=== PATIENT | female | born 1935 | race Caucasian/White ===

== ENCOUNTER → 2017-02-03 | Outpatient (CLI) | payer OTHER, BC ==
[~2017-02-03] MED LIST: ASCO1CAP3 PO; ASPEC325 PO; CALC-20 PO; CHOL1000 PO; HYDR-5688 PO; LEVO88TA3 PO; LSN20 PO; MELO7.5T5 PO; MULT-506 PO; OXYSR10 PO; PROB1TAB16 PO; PSYL0.524 PO; RANI300T PO; SNK PO
--- NOTE | 2017-02-03 14:42 | MAMMOGRAPHY REPORT ---
BILATERAL DIGITAL SCREENING MAMMOGRAM WITH CAD: 02/03/2017 CLINICAL HISTORY: Routine screening. Patient has no complaints. TECHNIQUE: Bilateral CC and MLO views were obtained. Current study was also evaluated with a Compute r Aided Detection (CAD) system. COMPARISON: Comparison is made to exams dated: 02/01/2016 mammogram, 01/02/2015 mammogram, 11/22/2013 ma mmogram, 11/18/2012 mammogram, 11/17/2011 mammogram, and 10/16/2010 mammogram - [facility]ter. BREAST COMPOSITION: There are scattered areas of fibroglandular density in both breasts. FINDINGS: There are scattered bilateral benign-appearing calcifications. The parenchymal pattern griselda ears similar to prior exams. No new suspicious mass, architectural distortion or cluster of microcal cifications is seen. IMPRESSION: ACR BI-RADS CATEGORY 1: NEGATIVE There is no mammographic evidence of malignancy. A 1 year screening mammogram is recommended. The pa tient will receive written notification of the results. Approximately 10% of breast cancers are not detected with mammography. A negative mammographic report should not delay biopsy if a clinically suggestive mass is present. Kaylah Langford M.D. ay/:02/03/2017 10:02:55 Covered Button Maker: Maribell JULIAN(R)(M), [facility] letter sent: Normal 1/2 BI-RADS Code: ACR BI-RADS Category 1: Negative
== END | disposition home or self-care (01) ==
LOC: C.MAMM 09:29
PROVIDERS: ATTEND Family Medicine
DX: Z12.31 Encounter for screening mammogram for malignant neoplasm of breast (principal)

== ENCOUNTER → 2017-11-17 | Outpatient (CLI) | payer OTHER, BC | END | disposition home or self-care (01) | LOC: C.MAMM 09:48 | PROVIDERS: ATTEND Student in an Organized Health Care Education/Training Program | DX: M81.0 Age-related osteoporosis without current pathological fracture (principal); M85.88 Other specified disorders of bone density and structure, other site ==

== ENCOUNTER 2021-04-01 10:05 | Observation (INO) ==
[2021-04-01 10:35] LABS: Basophils # (auto) 0.02 K/uL (0-0.2); Basophils % (auto) 0.3 %; Eosinophils % (auto) 4.4 %; Hematocrit (blood only) 42.2 % (37-47); Hemoglobin 14.1 g/dL (12.0-16.0); Immature Granulocytes # (auto) 0.01 K/uL (0.00-0.02); Immature Granulocytes % (auto) 0.1 %; Lymphocytes # (auto) 2.17 K/uL (1.2-3.4); Lymphocytes % (auto) 31.9 %; Mean Corpuscular Hemoglobin 31.3 pg (25-34); Mean Corpuscular Hgb Conc 33.4 g/dL (32-36); Mean Corpuscular Volume 93.8 fL (80-100); Mean Platelet Volume 12.1 fL (7.4-10.4); Monocytes # (auto) 0.63 K/uL (0.11-0.59); Monocytes % (auto) 9.3 %; Neutrophils # (auto) 3.67 K/uL (1.4-6.5); Platelet Count 177 K/uL (130-400); RDW Standard Deviation 44.7 fL (36.4-46.3)
--- NOTE | 2021-04-01 10:44 | XRay Report ---
XR chest 1V portable HISTORY: 85 years-old Female Chest Pain acute atypical chest pain with left arm pain COMPARISON: Chest radiograph 10/28/2018 TECHNIQUE: Portable AP view of the chest FINDINGS: Cardiac silhouette is mildly enlarged. No pneumothorax, pleural effusion, airspace consolidation or o vert pulmonary edema. Degenerative changes of the shoulders and spine. IMPRESSION: No acute process. ACT 112: Negative or not required by law. The above report was generated using voice recognition software. It may contain grammatical, syntax o r spelling errors. Electronically signed by: Filemon Lopez M.D. 04/01/2021 10:43 AM
[2021-04-01 10:51] LABS: Appearance Urine Clear (Clear); Bilirubin Urine Negative (Negative); Blood Urine Negative (Negative); Color Urine Yellow; Glucose Urine UA Negative (Negative); Ketones Urine Negative (Negative); Leukocyte Esterase Urine Negative (Negative); Nitrite Urine Positive (Negative); Protein Urine Negative (Negative); Urobilinogen Urine Negative (Negative)
[2021-04-01 11:00] LABS: Partial Thromboplastin Ratio 0.9; Partial Thromboplastin Time 24.2 Seconds (21.0-31.0); Prothrombin Time 9.9 Seconds (9.0-12.0)
[2021-04-01 11:00] LABS: Bacteria Urine 2+ (Negative); Epithelial Cell Urine 0-5 /lpf (0-5); RBC Urine 0-4 /hpf (0-4); WBC Urine 0-5 /hpf (0-5)
--- NOTE | 2021-04-01 11:13 | Emergency Department Note ---
History of Present Illness General Chief complaint: Cardiac Assessment Stated complaint: SOB,PAIN IN LEFT ARM Time Seen by Provider: 04/01/21 10:49 Source: patient Mode of arrival: ambulatory Limitations: no limitations History of Present Illness Maximum Pain Intensity: 0 This patient is a 85-year-old female who comes in after having episode of left arm pain that radiates to her axilla. She was in her usual state of health she went out to walk which she typically does and she started having this discomfort which he describes as a gnawing pain. It may have also radiated to her shoulder. No chest pain she felt more winded than usual. She said she felt better if she sat down nothing seemed to make it worse except for exertion. No pain with movement of the arm itself. She was not not nauseated. She felt mildly sweaty although not out of ordinary for her exercising. She says she feels fine at present. She has no pain or discomfort. She says she has had issues like this before but it has always gone away and her doctor told her to keep an eye on it. She had a stress test years ago but none recently. She has had no fever chills she does a Covid vaccine. No abdominal pain. No blood or melena in her stool. Home Medications Medication Instructions Recorded Confirmed Type acetaminophen 500 mg tablet 1,000 mg PO Q6H PRN 10/28/18 04/01/21 History (Tylenol Extra Strength) ascorbic acid (vitamin C) 500 mg 500 mg PO BID 10/28/18 04/01/21 History tablet (Vitamin C) aspirin 81 mg tablet,delayed 81 mg PO HS 10/28/18 04/01/21 History release cholecalciferol (vitamin D3) 25 1,000 unit PO QAM 10/28/18 04/01/21 History mcg (1,000 unit) tablet (Vitamin D3) lactobacillus combination no.4 3 3,000 mmu cells PO HS 10/28/18 03/07/20 History billion cell capsule (Probiotic) lisinopril 20 mg tablet 20 mg PO QAM 10/28/18 04/01/21 History multivitamin 1 tab PO QAM 10/28/18 04/01/21 History psyllium husk 0.52 gram capsule 0.52 g PO QAM PRN 10/28/18 04/01/21 History (Metamucil) famotidine 20 mg tablet 40 mg PO BID 12/17/19 04/01/21 History levothyroxine 75 mcg tablet 75 mcg PO QAM 12/17/19 04/01/21 History meloxicam 15 mg tablet 15 mg PO QAM 12/20/19 04/01/21 History calcium carbonate 600 mg (1,500 1 tab PO DAILY 04/01/21 04/01/21 History mg)-vitamin D3 200 unit tablet (Calcium 600 + D(3)) Allergies Allergy/AdvReac Type Severity Reaction Status Date / Time Penicillins Allergy Unknown Unknown Verified 04/01/21 11:13 doxycycline AdvReac Severe Gastrointestinal Verified 04/01/21 11:13 Upset Sulfa (Sulfonamide AdvReac Mild Nausea Verified 04/01/21 11:13 Antibiotics) Past Med/Surg History Medical History (Updated 04/01/21 @ 17:28 by Jim Pavon MD) Diabetes mellitus, type 2 Diet controlled GERD (gastroesophageal reflux disease) Hearing deficit BL LOVE History of colon polyps Hypertension Hypothyroidism Osteoarthritis Right knee DJD Surgical History History of ankle surgery Lt History of appendectomy History of carpal tunnel release of both wrists History of cataract surgery History of colonoscopy History of esophagogastroduodenoscopy (EGD) History of hammertoe correction History of partial hysterectomy History of right knee joint replacement History of toe surgery History of tonsillectomy S/P hysterectomy Family History Sister Family history of esophageal cancer Social History Smoking Status: Never smoker Second Hand Exposure: Yes ( was a smoker); Hx Alcohol Use: Yes Alcohol type: wine Hx Substance Use: No Preferred Language: Danish Communication Ability: Effective Musician Instrumental Required: No Beliefs That Will Affect Care: None marital status: / Current Living Situation: Spouse current occupational status: retired Other Information That Helps Us Care for You: No Feels Safe at Home: Yes Safety Concerns: Feels Safe At This Time Assistive Devices: Glasses Review of Systems A total of 10 systems reviewed and were otherwise negative Physical Exam Vital Signs Vital Signs - 24 hr 04/01/21 10:07 04/01/21 10:40 04/01/21 11:16 Temperature 37.0 C Temperature Source Temporal Artery Scan Pulse Rate 70 63 Pulse Rate [Apical] 72 Pulse Rate from SpO2 Sensor 64 Pulse Rhythm Pulse Rhythm [Apical] Regular Pulse Strength [Apical] Normal Respiratory Rate 18 16 16 Respiratory Effort / Characteristics Non-Labored Spontaneous Respiratory Depth Normal Blood Pressure 174/78 H 140/72 Blood Pressure [Right Arm] 153/69 H Blood Pressure Mean 110 94 Blood Pressure Mean [Right Arm] 97 Blood Pressure Position [Right Arm] Standing Pulse Oximetry 97 99 97 Oxygen Delivery Method Room Air Sepsis Recent Fever Within 48 Hours No Sepsis New/Unexplained Change in Mental Status No Sepsis Action Taken by Nursing No Action Required 04/01/21 11:34 04/01/21 13:57 Temperature Temperature Source Pulse Rate 60 Pulse Rate [Apical] 68 Pulse Rate from SpO2 Sensor Pulse Rhythm Regular Pulse Rhythm [Apical] Pulse Strength [Apical] Respiratory Rate 20 20 Respiratory Effort / Characteristics Respiratory Depth Blood Pressure Blood Pressure [Right Arm] 164/72 H Blood Pressure Mean Blood Pressure Mean [Right Arm] 102 Blood Pressure Position [Right Arm] Pulse Oximetry 98 96 Oxygen Delivery Method Room Air Room Air Sepsis Recent Fever Within 48 Hours Sepsis New/Unexplained Change in Mental Status Sepsis Action Taken by Nursing General: Well developed well nourished older female who appears younger than stated age and in no acute distress, breathing comfortably on room air. Normal speech HEENT: Normal cephalic atraumatic. Pupils are equal round and reactive to ligh t. Extraocular movements are intact. Oropharynx is pink with moist mucous membranes. No swelling of the mouth lips or tongue. Neck: Supple with a midline trachea. No meningeal signs or stiffness, no JVD or bruits. No Stridor. Chest: Clear to auscultation bilaterally. No wheezes or rhonchi. No increased work of breathing. Heart: Regular rate and rhythm without murmurs or gallops. Abdomen: Soft nontender, nondistended without rebound guarding or rigidity. Extremities: No cyanosis clubbing or edema. No calf tenderness or assymetry. Left upper extremity is pink and well-perfused appearing with normal pulses. Is not swollen is not red is not tender. She is not reproducibly tender with movement. Spine/Back. Non tender to palpation. No CVA tenderness Skin: Good turgor without rashes. Neurologic exam: Cranial nerves two through 12 are intact. Motor and sensation are intact and symmetrical throughout. Course Administered Medications Discontinued Medications Aspirin (Aspirin 81 Mg Chew) 324 mg PO NOW STA Stop: 04/01/21 12:37 Last Admin: 04/01/21 12:54 Dose: 324 mg Documented by: [id number] Medical Decision Making Differential Diagnosis Acute coronary syndrome, arrhythmia, electrolyte or metabolic abnormality, musculoskeletal, anxiety, CHF, PE, aortic pathology Medical Records Attestation: I reviewed the patient's medical records. Home Medications Current Medication List: was personally reviewed by me Laboratory Data Attestation: I reviewed the patient's lab results. Result diagrams: 04/01/21 10:24 04/01/21 10:24 Lab Results 04/01/21 04/01/21 04/01/21 Range/Units 10:24 10:24 10:24 WBC 6.80 (4.8-10.8) K/uL RBC 4.50 (4.2-5.4) M/uL Hgb 14.1 (12.0-16.0) g/dL Hct 42.2 (37-47) % MCV 93.8 (80-100) fL MCH 31.3 (25-34) pg MCHC 33.4 (32-36) g/dL RDW Std Deviation 44.7 (36.4-46.3) fL RDW Coeff of Jenna 13.0 (11.5-14.5) % Plt Count 177 (130-400) K/uL MPV 12.1 H (7.4-10.4) fL Immature Gran % (Auto) 0.1 % Neut % (Auto) 54.0 % Lymph % (Auto) 31.9 % [place] % (Auto) 9.3 % Eos % (Auto) 4.4 % Baso % (Auto) 0.3 % Neut # (Auto) 3.67 (1.4-6.5) K/uL Lymph # (Auto) 2.17 (1.2-3.4) K/uL [place] # (Auto) 0.63 H (0.11-0.59) K/uL Eos # (Auto) 0.30 (0-0.5) K/uL Baso # (Auto) 0.02 (0-0.2) K/uL Immature Gran # (Auto) 0.01 (0.00-0.02) K/uL PT 9.9 (9.0-12.0) Seconds INR 1.0 (0.9-1.1) APTT 24.2 (21.0-31.0) Seconds PTT Ratio 0.9 Sodium 137 (136-145) mmol/L Potassium 4.6 (3.5-5.1) mmol/L Chloride 106 (98-107) mmol/L Carbon Dioxide 27 (21-32) mmol/L Anion Gap 4.0 (3-11) BUN 22 H (7-18) mg/dl Creatinine 1.00 (0.6-1.2) mg/dl Est Cr Clr Drug Dosing 40.9 ml/min Est GFR ( Amer) 60.3 ml/min Est GFR (Non-Af Amer) 52.1 ml/min BUN/Creatinine Ratio 22.5 H (10-20) Glucose 128 H (70-99) mg/dl Calcium 9.1 (8.5-10.1) mg/dl Total Bilirubin 0.4 (0.2-1) mg/dl AST 16 (15-37) U/L ALT 24 (12-78) U/L Alkaline Phosphatase 49 (45-117) U/L Troponin I < 0.015 (0-0.045) ng/ml Total Protein 6.8 (6.4-8.2) gm/dl Albumin 3.7 (3.4-5.0) gm/dl Globulin 3.1 (2.5-4.0) gm/dl Albumin/Globulin Ratio 1.2 (0.9-2) Urine Color Urine Appearance (Clear) Urine pH (4.5-7.5) Ur Specific [place] (1.000-1.030) Urine Protein (Negative) Urine Glucose (UA) (Negative) Urine Ketones (Negative) Urine Blood (Negative) Urine Nitrite (Negative) Urine Bilirubin (Negative) Urine Urobilinogen (Negative) Ur Leukocyte Esterase (Negative) Urine RBC (0-4) /hpf Urine WBC (0-5) /hpf Ur Epithelial Cells (0-5) /lpf Urine Bacteria (Negative) COVID-19 Eval Order SARS-CoV-2 (PCR) (Negative) 04/01/21 04/01/21 04/01/21 Range/Units 10:37 12:54 12:54 WBC (4.8-10.8) K/uL RBC (4.2-5.4) M/uL Hgb (12.0-16.0) g/dL Hct (37-47) % MCV (80-100) fL MCH (25-34) pg MCHC (32-36) g/dL RDW Std Deviation (36.4-46.3) fL RDW Coeff of Jenna (11.5-14.5) % Plt Count (130-400) K/uL MPV (7.4-10.4) fL Immature Gran % (Auto) % Neut % (Auto) % Lymph % (Auto) % [place] % (Auto) % Eos % (Auto) % Baso % (Auto) % Neut # (Auto) (1.4-6.5) K/uL Lymph # (Auto) (1.2-3.4) K/uL [place] # (Auto) (0.11-0.59) K/uL Eos # (Auto) (0-0.5) K/uL Baso # (Auto) (0-0.2) K/uL Immature Gran # (Auto) (0.00-0.02) K/uL PT (9.0-12.0) Seconds INR (0.9-1.1) APTT (21.0-31.0) Seconds PTT Ratio Sodium (136-145) mmol/L Potassium (3.5-5.1) mmol/L Chloride (98-107) mmol/L Carbon Dioxide (21-32) mmol/L Anion Gap (3-11) BUN (7-18) mg/dl Creatinine (0.6-1.2) mg/dl Est Cr Clr Drug Dosing ml/min Est GFR ( Amer) ml/min Est GFR (Non-Af Amer) ml/min BUN/Creatinine Ratio (10-20) Glucose (70-99) mg/dl Calcium (8.5-10.1) mg/dl Total Bilirubin (0.2-1) mg/dl AST (15-37) U/L ALT (12-78) U/L Alkaline Phosphatase (45-117) U/L Troponin I (0-0.045) ng/ml Total Protein (6.4-8.2) gm/dl Albumin (3.4-5.0) gm/dl Globulin (2.5-4.0) gm/dl Albumin/Globulin Ratio (0.9-2) Urine Color Yellow Urine Appearance Clear (Clear) Urine pH 7.0 (4.5-7.5) Ur Specific [place] 1.010 (1.000-1.030) Urine Protein Negative (Negative) Urine Glucose (UA) Negative (Negative) Urine Ketones Negative (Negative) Urine Blood Negative (Negative) Urine Nitrite Positive A (Negative) Urine Bilirubin Negative (Negative) Urine Urobilinogen Negative (Negative) Ur Leukocyte Esterase Negative (Negative) Urine RBC 0-4 (0-4) /hpf Urine WBC 0-5 (0-5) /hpf Ur Epithelial Cells 0-5 (0-5) /lpf Urine Bacteria 2+ H (Negative) COVID-19 Eval Order Covid19 at [facility] SARS-CoV-2 (PCR) NEGATIVE (Negative) Imaging Data Attestation: I personally reviewed and interpreted this imaging study as follows: My Impression: Chest x-rayno acute infiltrate, failure, pneumothorax Radiologist's Impression: Chest X-Ray 04/01/21 10:12 XR chest 1V portable HISTORY: 85 years-old Female Chest Pain acute atypical chest pain with left arm pain COMPARISON: Chest radiograph 10/28/2018 TECHNIQUE: Portable AP view of the chest FINDINGS: Cardiac silhouette is mildly enlarged. No pneumothorax, pleural effusion, airspace consolidation or overt pulmonary edema. Degenerative changes of the shoulders and spine. IMPRESSION: No acute process. ACT 112: Negative or not required by law. The above report was generated using voice recognition software. It may contain grammatical, syntax or spelling errors. Electronically signed by: Filemon Lopez M.D. 04/01/2021 10:43 AM ECG Data Attestation: I personally reviewed and interpreted this ECG as follows: Indication: + chest pain Rate (beats per minute): 72 Rhythm: + normal sinus ECG Intervals/blocks: + Normal QRS, + Normal QT and + Normal PA ECG [place]: + Normal ECG ST segments: + Normal ST segments ECG Findings: no PACs or no PVCs Comparison ECG Date: from (10/28/18) Change: no significant change Additional Comments: EKG #2: Sinus bradycardia rate of 59. No acute ischemic changes or ectopy. No change when compared EKG #1 MDM Narrative This patient comes in as described above. She was placed on a teletypesetter monitor and C1. She had episode of left arm pain into her axilla. She feels better at present it seemed to be exacerbated with exertion. She has no neurologic deficits. She does tell me that her mother had a CABG early in her life at age 52. The patient does have borderline diabetes but no increased cholesterol she is not a smoker. Her initial EKG does not appear ischemic. Her troponin was also negative. A second EKG shows no ischemia. Chest x-ray does not suggest congestive heart failure pneumonia or pneumothorax. She has no significant lecture light or metabolic abnormalities. Covid testing was negative. Given her presentation of symptoms, its exertional component and her risk factors, I do think she needs to be admitted/observe for further cardiac work-up and rule out. I have consulted the [facility] hospitalist team for these measures. Continuous cardiac monitoring: Orders placed in EMR for continuous cardiac monitoring. Upon my interpretation, the patient was noted to be normal sinus rhythm with a rate of 60. Impression & Plan Chest pain, Arm pain, Lab test negative for COVID-19 virus, Family history of heart disease Discharge Plan Visit Data Chief Complaint: Cardiac Assessment Stated Complaint: SOB,PAIN IN LEFT ARM ED Provider: Jim Pavon Discharge Problem: Chest pain, Arm pain, Lab test negative for COVID-19 virus, Family history of heart disease Patient Disposition: Admitted As Inpatient Discharge Instructions Interventions: ED Discharge Assessment Last Done: 04/01/21 15:36 Discharge Problem: Chest pain Qualifiers: Chest pain type: unspecified Qualified Code(s): R07.9 - Chest pain, unspecified Arm pain Qualifiers: Laterality: left Qualified Code(s): M79.602 - Pain in left arm
[2021-04-01 11:14] LABS: Alanine Aminotransferase 24 U/L (12-78); Albumin Level 3.7 gm/dl (3.4-5.0); Aspartate Aminotransferase 16 U/L (15-37); BUN Creatinine Ratio 22.5 (10-20); Blood Urea Nitrogen 22 mg/dl (7-18); Calcium 9.1 mg/dl (8.5-10.1); Carbon Dioxide 27 mmol/L (21-32); Chloride 106 mmol/L (98-107); Creatinine Clr Calc Pharmacy 40.9 ml/min; Est GFR (African American) 60.3 ml/min; Est GFR (Non-African American) 52.1 ml/min; Glucose 128 mg/dl (70-99); Potassium 4.6 mmol/L (3.5-5.1); Sodium 137 mmol/L (136-145)
[2021-04-01 11:19] LABS: Albumin Globulin Ratio 1.2 (0.9-2); Alkaline Phosphatase 49 U/L (45-117); Bilirubin,Total 0.4 mg/dl (0.2-1); Globulin 3.1 gm/dl (2.5-4.0); Total Protein 6.8 gm/dl (6.4-8.2); Troponin I < 0.015 ng/ml (0-0.045)
[2021-04-01] MEDS ORDERED: ASPIRIN 81 MG CHEW PO STA (12:36)
--- NOTE | 2021-04-01 14:53 | History & Physical Report ---
Date of Service April 01, 2021 Assessment & Plan (1) Chest pain: Plan: Shweta is an 85-year-old female who presents with new chest pain and shortness of breath who was admitted for cardiac evaluation Chest pain with shortness of breath Left-sided shoulder/chest pain associated with shortness of breath diaphoresis, no prior similar episodes Family history in mother of bypass around age 50, patient with history of diabetes A1c less than 7 without pharmacotherapy. No tobacco use Resolved by time of HPI Troponin negative in ER, EKG without ST changes Trend troponins every 6 hours x3 total, admit to [facility] with telemetry for observation Aspirin given in ER Defer heparinization Patient on lisinopril at baseline Anticipate need for outpatient follow-up and possible stress test (2) Urinary frequency: Plan: Uncomplicated UTI Patient with new polyuria UA 2+ bacteria, nitrite positive Patient with allergy to doxycycline, documented to penicillin patient does not recall this allergy creatinine clearance 40.9 dosing, GFR 52 Keflex 250 mg every 6 hours, UC pending (3) Diabetes mellitus, type 2: Plan: Type 2 diabetes mellitus, A1c less than 7 without oral antiglycemic's Glucose checks AC/at bedtime SSI insulin (4) Hypothyroidism: Plan: Hypothyroidism Continue Synthroid 75 mcg every morning (5) Hypertension: Plan: Hypertension Continue lisinopril 20 mg every morning Continue aspirin 81 mg daily (6) DVT prophylaxis: Plan: VT prophylaxis: Lovenox Diet: Heart healthy Disposition: Medical surgical with telemetry CODE STATUS: Full code History of Present Illness Chief Complaint: Chest pain Primary Care Provider: Brad Monroe MD Shweta is an 85-year-old female who presents with chest pain Shweta reports that she was walking on her normal approximately 2 and half mile walk today and was three-quarter as a mile and when she developed a achy pain in her left shoulder radiating into her chest. She has had intermittent shoulder pain in the past which normally improves with walking, this pain was brought on by walking and after a few minutes was associated with shortness of breath and labored breathing. She called her primary care physician who recommended she be seen in the emergency department. She denies a past history of heart problems, but notes her mother required triple bypass at approximately age 50. She reports that she felt a little bit sweaty during the episode. Her pain was 3/10 in intensity, aching quality, and in total seem to last about 20 minutes. She has not had symptoms like this before other than noted above. Denies abdominal pain, diarrhea, constipation, syncope, presyncope, palpitations. She reports she has had some increased urinary frequency. She notes a history of diabetes well controlled without medications under 7% A1c. No tobacco use. Alcohol 1 glass a day approximately 5 days a week. Lives in [facility], no recent sick contacts. Medical History: Reviewed Medications: Reviewed Surgical History: Reviewed Allergies: Reviewed Social History: Reviewed Code Status: Full Allergies Allergy/AdvReac Type Severity Reaction Status Date / Time Penicillins Allergy Unknown Unknown Verified 04/01/21 11:13 doxycycline AdvReac Severe Gastrointestinal Verified 04/01/21 11:13 Upset Sulfa (Sulfonamide AdvReac Mild Nausea Verified 04/01/21 11:13 Antibiotics) Home Medications Medication Instructions Recorded Confirmed Type acetaminophen 500 mg tablet 1,000 mg PO Q6H PRN 10/28/18 04/01/21 History (Tylenol Extra Strength) ascorbic acid (vitamin C) 500 mg 500 mg PO BID 10/28/18 04/01/21 History tablet (Vitamin C) aspirin 81 mg tablet,delayed 81 mg PO HS 10/28/18 04/01/21 History release cholecalciferol (vitamin D3) 25 1,000 unit PO QAM 10/28/18 04/01/21 History mcg (1,000 unit) tablet (Vitamin D3) lactobacillus combination no.4 3 3,000 mmu cells PO HS 10/28/18 03/07/20 History billion cell capsule (Probiotic) lisinopril 20 mg tablet 20 mg PO QAM 10/28/18 04/01/21 History multivitamin 1 tab PO QAM 10/28/18 04/01/21 History psyllium husk 0.52 gram capsule 0.52 g PO QAM PRN 10/28/18 04/01/21 History (Metamucil) famotidine 20 mg tablet 40 mg PO BID 12/17/19 04/01/21 History levothyroxine 75 mcg tablet 75 mcg PO QAM 12/17/19 04/01/21 History meloxicam 15 mg tablet 15 mg PO QAM 12/20/19 04/01/21 History calcium carbonate 600 mg (1,500 1 tab PO DAILY 04/01/21 04/01/21 History mg)-vitamin D3 200 unit tablet (Calcium 600 + D(3)) Past Med/Surg History Medical History (Updated 04/01/21 @ 15:01 by Seymour Concepcion MD) Diabetes mellitus, type 2 Diet controlled GERD (gastroesophageal reflux disease) Hearing deficit BL LOVE History of colon polyps Hypertension Hypothyroidism Osteoarthritis Right knee DJD Surgical History History of ankle surgery Lt History of appendectomy History of carpal tunnel release of both wrists History of cataract surgery History of colonoscopy History of esophagogastroduodenoscopy (EGD) History of hammertoe correction History of partial hysterectomy History of right knee joint replacement History of toe surgery History of tonsillectomy S/P hysterectomy Family History Sister Family history of esophageal cancer Social History Smoking Status: Never smoker Second Hand Exposure: Yes ( was a smoker); Hx Alcohol Use: No Hx Substance Use: No Preferred Language: Jordanian Communication Ability: Effective Pocket Marker Required: No Beliefs That Will Affect Care: None marital status: / Current Living Situation: Alone current occupational status: retired Feels Safe at Home: Yes Assistive Devices: Cane, Glasses and Hearing Aid - Bilateral Review of Systems Review of Systems: Constitutional: Denies fever, chills, malaise, weight change Eyes: Denies double vision, vision change, eye pain ENT: Denies ear pain, sore throat, sinus pain Cardiovascular: See above Respiratory: See above Gastrointestinal: Denies abdominal pain, nausea, vomiting, constipation, diarrhea Genitourinary: Denies pain with urination, urinary urgency, urinary frequency Musculoskeletal: Denies weakness, muscle aches/pain, joint aches/pain Integumentary:Denies rash, lesions, bruising Neurological: Denies headache, numbness, tingling, focal weakness Physical Exam Physical Exam: General: A&Ox3. NAD. Cooperative. HEENT: Atraumatic, normocephalic. Pulls equal and reactive to light and accommodation. Extraocular movements intact without deficit. Hard of hearing. Pulm: CTAB A&P. -wheezes, -rales, -rhonchi. Symmetrical chest rise. No increase work of breathing. No respiratory distress. Cardiac: RRR, -mrg. Radial pulses intact and symmetrical. No JVD or peripheral edema. Abdominal: Nontender, nondistended, soft. BS present. Extremity: Warm, dry. Sensation to soft touch intact in fingers and toes without deficit. 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 PT pulses and radial pulses intact and symmetrical. Results & Data Results & Data ([facility]) Vital Signs (Past 12 Hours) Vital Signs Temp Pulse Pulse Resp BP BP Pulse Ox 04/01/21 13:57 68 20 164/72 H 96 04/01/21 11:34 60 20 98 04/01/21 11:16 72 16 153/69 H 97 04/01/21 10:40 63 16 140/72 99 04/01/21 10:07 37.0 C 70 18 174/78 H 97 Laboratory Results Abnormal lab results 04/01/21 04/01/21 04/01/21 Range/Units 10:24 10:24 10:37 MPV 12.1 H (7.4-10.4) fL [place] # (Auto) 0.63 H (0.11-0.59) K/uL BUN 22 H (7-18) mg/dl BUN/Creatinine Ratio 22.5 H (10-20) Glucose 128 H (70-99) mg/dl Urine Nitrite Positive A (Negative) Urine Bacteria 2+ H (Negative) Diagnostic Findings Chest X-Ray 04/01/21 10:12 XR chest 1V portable HISTORY: 85 years-old Female Chest Pain acute atypical chest pain with left arm pain COMPARISON: Chest radiograph 10/28/2018 TECHNIQUE: Portable AP view of the chest FINDINGS: Cardiac silhouette is mildly enlarged. No pneumothorax, pleural effusion, airspace consolidation or overt pulmonary edema. Degenerative changes of the shoulders and spine. IMPRESSION: No acute process. ACT 112: Negative or not required by law. The above report was generated using voice recognition software. It may contain grammatical, syntax or spelling errors. Electronically signed by: Filemon Lopez M.D. 04/01/2021 10:43 AM Medications Administered Home Medications acetaminophen 500 mg tablet (Tylenol Extra Strength) 1,000 mg PO Q6H PRN 10/28/18 [History Confirmed 04/01/21] ascorbic acid (vitamin C) 500 mg tablet (Vitamin C) 500 mg PO BID 10/28/18 [History Confirmed 04/01/21] aspirin 81 mg tablet,delayed release 81 mg PO HS 10/28/18 [History Confirmed 04/01/21] cholecalciferol (vitamin D3) 25 mcg (1,000 unit) tablet (Vitamin D3) 1,000 unit PO QAM 10/28/18 [History Confirmed 04/01/21] lactobacillus combination no.4 3 billion cell capsule (Probiotic) 3,000 mmu cells PO HS 10/28/18 [History Confirmed 03/07/20] lisinopril 20 mg tablet 20 mg PO QAM 10/28/18 [History Confirmed 04/01/21] multivitamin 1 tab PO QAM 10/28/18 [History Confirmed 04/01/21] psyllium husk 0.52 gram capsule (Metamucil) 0.52 g PO QAM PRN 10/28/18 [History Confirmed 04/01/21] famotidine 20 mg tablet 40 mg PO BID 12/17/19 [History Confirmed 04/01/21] levothyroxine 75 mcg tablet 75 mcg PO QAM 12/17/19 [History Confirmed 04/01/21] meloxicam 15 mg tablet 15 mg PO QAM 12/20/19 [History Confirmed 04/01/21] calcium carbonate 600 mg (1,500 mg)-vitamin D3 200 unit tablet (Calcium 600 + D(3)) 1 tab PO DAILY 04/01/21 [History Confirmed 04/01/21] PG Care Time/CCT Total # of Minutes Spent Total Time Spent with Patient: Total time spent is greater than 50% in coordination of care (as documented) at patient's floor/unit and/or counseling patient: Coding Level of Care Code 33085 Initial Inpt Care Lvl 3 Diagnoses Chest pain R07.9 Urinary frequency R35.0 Diabetes mellitus, type 2 E11.9 DVT prophylaxis Z29.9 Hypothyroidism E03.9 Hypertension I10
[2021-04-01] MEDS ORDERED: ACETAMINOPHEN 325 MG TAB PO PRN (15:56)
[2021-04-01] MEDS ORDERED: MoRPHine SULFATE 2 MG/ML CARP IV PRN (15:56)
[2021-04-01] MEDS ORDERED: NITROGLYCERIN SL 0.4 MG/TAB TAB SL PRN (15:56)
[2021-04-01] MEDS: ENOXAPARIN INJ 40 MG/0.4 ML SYR SQ SCH (17:38)
[2021-04-01] MEDS: cephALEXin 250 MG CAP PO SCH ×2 (17:38→20:25)
--- NOTE | 2021-04-01 18:08 | Electrocardiogram Report ---
Test Reason : Blood Pressure : / mmHG Vent. Rate : 072 BPM Atrial Rate : 072 BPM P-R Int : 166 ms QRS Dur : 078 ms QT Int : 376 ms P-R-T Axes : 042 047 014 degrees QTc Int : 411 ms Normal sinus rhythm Normal ECG When compared with ECG of 28-OCT-2018 18:27, No significant change was found Confirmed by Maikel Bahena ([id number]) on 04/01/2021 6:08:22 PM Referred By: REFERRED SELF Confirmed By:Willy Bahena
--- NOTE | 2021-04-01 18:12 | Electrocardiogram Report ---
Test Reason : Blood Pressure : / mmHG Vent. Rate : 059 BPM Atrial Rate : 059 BPM P-R Int : 176 ms QRS Dur : 084 ms QT Int : 416 ms P-R-T Axes : 035 013 019 degrees QTc Int : 411 ms Sinus bradycardia Otherwise normal ECG When compared with ECG of 01-APR-2021 10:18, (unconfirmed) No significant change was found Confirmed by Maikel Bahena ([id number]) on 04/01/2021 6:11:39 PM Referred By: REFERRED SELF Confirmed By:Willy Bahena
[2021-04-01] MEDS: ASPIRIN 81 MG ECTAB PO SCH (20:25)
[2021-04-01] MEDS: FAMOTIDINE 40 MG TABLET PO SCH (20:26)
[2021-04-02] MEDS: LEVOTHYROXINE SODIUM 75 MCG TABLET PO SCH (07:46)
[2021-04-02] MEDS: FAMOTIDINE 40 MG TABLET PO SCH ×2 (07:48→20:16)
[2021-04-02 07:55] LABS: BUN Creatinine Ratio 24.8 (10-20); Calcium 9.2 mg/dl (8.5-10.1); Creatinine Clr Calc Pharmacy 44.3 ml/min; Est GFR (African American) 67.6 ml/min; Est GFR (Non-African American) 58.3 ml/min; Potassium 4.4 mmol/L (3.5-5.1)
[2021-04-02] MEDS: cephALEXin 250 MG CAP PO SCH ×4 (09:06→20:15)
[2021-04-02] MEDS: lisinopril 20 MG TAB PO SCH (09:06)
[2021-04-02] MEDS: MELOXICAM 7.5 MG TAB PO SCH (09:06)
--- NOTE | 2021-04-02 14:55 | XCELERA ---
[id number]
--- NOTE | 2021-04-02 17:22 | Cardiology Consultation ---
Date of Consultation April 02, 2021 Assessment & Plan (1) Arm pain: Unclear etiology. I do not believe this is a symptom of angina or coronary insufficiency. The symptoms resolved without elimination of activity. He seemed to be more positional in nature and curiously only occur with walking. I think this is more indicative of a radiculopathy or possibly some other local vascular phenomenon. I think this is not likely subclavian stenosis. Pulses are normal at rest. However, on ultrasound of the subclavian and axillary vasculature could be helpful in this regard. (2) Ventricular hypertrophy: She does appear to have some element of right ventricular thickening on echocardiography. This was detected previously on echocardiography as well. Unclear etiology. No evidence of primary pulmonary disease. She does not describe symptoms of significant dyspnea and there is no evidence of pulmonary hypertension. Overall RV function appears to be normal. No EKG abnormalities. Unlikely represents any form of ARVC given her advanced age in the absence of other findings. History of Present Illness Reason for Consultation: Exertional arm pain Requesting Physician: Jenni Attending Physician: Delfin Arteaag History of Present Illness The patient is an 85-year-old woman without a known history of cardiac disease who has been experiencing symptoms exertional arm pain. Patient states the symptoms began at least a year ago. The occur almost exclusively with walking. The patient states that the symptoms start after walking for about 10-15 minutes. It involves a sensation of numbness and paresthesias in the left upper arm. This can generalized to include the lower arm as well. She does not describe this as pain. Generally speaking she can reduce her activity or more commonly she simply moves the left arm back and forth until the symptoms resolve. In most cases she does not need to discontinue activity and in fact continues walking for an extended period after resolution of the symptoms. Can also occur when she leaves her arm elevated on an arm rest for an extended period. This is not seem to occur with other activities. She does describe some symptoms of chest pressure and discomfort occasionally. She attributes this to indigestion. Often times the symptoms are relieved with activity. They happen rarely. They are not exertional. Allergies Allergy/AdvReac Type Severity Reaction Status Date / Time Penicillins Allergy Unknown Unknown Verified 04/01/21 11:13 doxycycline AdvReac Severe Gastrointestinal Verified 04/01/21 11:13 Upset Sulfa (Sulfonamide AdvReac Mild Nausea Verified 04/01/21 11:13 Antibiotics) Home Medications Medication Instructions Recorded Confirmed Type acetaminophen 500 mg tablet 1,000 mg PO Q6H PRN 10/28/18 04/01/21 History (Tylenol Extra Strength) ascorbic acid (vitamin C) 500 mg 500 mg PO BID 10/28/18 04/01/21 History tablet (Vitamin C) aspirin 81 mg tablet,delayed 81 mg PO HS 10/28/18 04/01/21 History release cholecalciferol (vitamin D3) 25 1,000 unit PO QAM 10/28/18 04/01/21 History mcg (1,000 unit) tablet (Vitamin D3) lactobacillus combination no.4 3 3,000 mmu cells PO HS 10/28/18 03/07/20 History billion cell capsule (Probiotic) lisinopril 20 mg tablet 20 mg PO QAM 10/28/18 04/01/21 History multivitamin 1 tab PO QAM 10/28/18 04/01/21 History psyllium husk 0.52 gram capsule 0.52 g PO QAM PRN 10/28/18 04/01/21 History (Metamucil) famotidine 20 mg tablet 40 mg PO BID 12/17/19 04/01/21 History levothyroxine 75 mcg tablet 75 mcg PO QAM 12/17/19 04/01/21 History meloxicam 15 mg tablet 15 mg PO QAM 12/20/19 04/01/21 History calcium carbonate 600 mg (1,500 1 tab PO DAILY 04/01/21 04/01/21 History mg)-vitamin D3 200 unit tablet (Calcium 600 + D(3)) Patient History Medical History (Updated 04/02/21 @ 17:18 by Rigo Bahena MD) Diabetes mellitus, type 2 Diet controlled GERD (gastroesophageal reflux disease) Hearing deficit BL LOVE History of colon polyps Hypertension Hypothyroidism Osteoarthritis Right knee DJD Surgical History History of ankle surgery Lt History of appendectomy History of carpal tunnel release of both wrists History of cataract surgery History of colonoscopy History of esophagogastroduodenoscopy (EGD) History of hammertoe correction History of partial hysterectomy History of right knee joint replacement History of toe surgery History of tonsillectomy S/P hysterectomy Family History Sister Family history of esophageal cancer Social History Smoking Status: Never smoker Second Hand Exposure: Yes ( was a smoker); Hx Alcohol Use: Yes Alcohol type: wine Hx Substance Use: No Preferred Language: French Communication Ability: Effective Flare Maker Required: No Beliefs That Will Affect Care: None marital status: / Current Living Situation: Spouse current occupational status: retired Other Information That Helps Us Care for You: No Feels Safe at Home: Yes Safety Concerns: Feels Safe At This Time Assistive Devices: Glasses Review of Systems Review of Systems: All systems reviewed & are unremarkable except as noted in HPI & below Physical Exam Physical Exam: She is alert and oriented x3. Mood affect appear normal. She answered all questions appropriately. HEENT: Sclerae are anicteric. Pupils are equal and reactive to light and accommodation. Extraocular movements were intact. Neuro: Cranial nerves intact Neck: Examination of the submandibular region did not reveal any significant lymphadenopathy. Carotids are palpable bilaterally and free of bruits on auscultation. There was no evidence of jugular venous distention. The thyroid was not enlarged. Lungs: Lungs are clear to auscultation bilaterally. There are no rales wheezes or rhonchi. She has normal respiratory effort without use of accessory muscles. There is normal pulmonary excursion. Cardiac: The rhythm was regular. S1 and S2 were normal. There are no murmurs on examination. The PMI was not markedly displaced on palpation. Extremities: Patient has bilateral radial pulses that are equal in intensity. There is no evidence cyanosis or clubbing. There was no evidence of significant peripheral edema bilaterally. Skin: There are no rashes noted on examination today. Results & Data ([facility]) Vital Signs (Past 12 Hours) Vital Signs Temp Pulse Pulse Resp BP Pulse Ox 04/02/21 15:24 36.6 C 59 L 18 129/60 95 04/02/21 15:00 65 04/02/21 09:04 67 114/61 04/02/21 07:44 36.5 C 60 18 127/75 93 04/02/21 07:00 75 Laboratory Results Abnormal Lab Results 04/01/21 04/01/21 04/02/21 20:15 22:11 06:35 Sodium 137 Potassium 4.4 Chloride 108 H Carbon Dioxide 26 Anion Gap 3.0 BUN 23 H Creatinine 0.91 Est Cr Clr Drug Dosing 44.3 Est GFR ( Amer) 67.6 Est GFR (Non-Af Amer) 58.3 BUN/Creatinine Ratio 24.8 H Glucose 98 POC Glucose 110 H Calcium 9.2 Troponin I < 0.015 Diagnostic Findings Exercise echocardiogram obtained today did not reveal any evidence of inducible ischemia. No significant valvular heart disease. Right ventricular hypertrophy. ECG Additional Comments: EKG obtained the time admission was normal. PG Care Time/CCT Total # of Minutes Spent Total Time Spent with Patient: Total time spent is greater than 50% in coordination of care (as documented) at patient's floor/unit and/or counseling patient: Coding Diagnoses Arm pain M79.602 Laterality: left Ventricular hypertrophy I51.7 (1) Arm pain Laterality: left Qualified Code(s): M79.602 - Pain in left arm
[2021-04-02] MEDS: ENOXAPARIN INJ 40 MG/0.4 ML SYR SQ SCH (18:01)
[2021-04-02] MEDS ORDERED: LORazepam 0.5 MG TAB PO PRN (19:11)
[2021-04-02] MEDS ORDERED: LORazepam 0.5 MG TAB PO ONE (19:19)
[2021-04-02] MEDS: ASPIRIN 81 MG ECTAB PO SCH (20:16)
--- NOTE | 2021-04-02 21:37 | Hospitalist Progress Note ---
Date of Service April 02, 2021 Assessment & Plan (1) Arm pain: Plan: left. mainly numbness/tingling. >90% of episodes occur with walking. symptoms improve with continuing her walk? denies neck pain, denies claudication. s/p stress test today - negative for ischemia, thought to be low risk study. I asked cardiology for formal evaluation just to ensure stress test was not falsely negative. Ischemic felt unlikely. other possible etiologies - subclavian steal ? c-spine DJD with radiculopathy? Obtain MRI c-spine; obtain LUE arterial duplex study. re-eval in am. (2) UTI (urinary tract infection): Plan: 2nd GNR - cont keflex. follow cx. (3) Diabetes mellitus, type 2: Plan: HbA1c 5.8% in 2019. no A1c since then. check a1c in am. not on meds at home. (4) Hypothyroidism: Plan: Check TSH am Continue Synthroid 75 mcg every morning in meantime (5) Hypertension: Plan: controlled (6) DVT prophylaxis: Plan: lovenox daily (7) Chronic kidney disease, stage 3a: Plan: CrCl about 40 at baseline BMPs stable/acceptable Plan: continue observation await c-spine MRI await LUE arterial duplex study appreciate Dr Bahena's consult Admission and Anticipated Discharge Date Admission Date: April 01, 2021 Subjective patient sitting in chair during my visit. she had just returned from her stress test. denies any chest pain, dyspnea, or left arm symptoms during the stress test. patient states that nearly all episodes of left arm tingling/discomfort are with walking. walking up a hill provokes her symptoms. not too far into a walk the symptoms occur - left hand numbness, which then spreads proximally up the arm past the elbow. yesterday her left arm symptoms traveled to the left shoulder. she had associated shortness of breath but no chest pain. she states that "she just keeps walking and eventually the numbness resolves". denies neck pain. denies claudication of left arm. has otherwise been feeling well. tele overnight wnl. Review of Systems Constitutional: no fever, no chills and no sweats Respiratory: no cough and no dyspnea Cardiovascular: as per Subjective / HPI and + radiating jaw, neck or arm pain; no chest pain, no dyspnea at rest, no dyspnea on exertion and no palpitations Gastrointestinal: no abdominal pain, no nausea and no vomiting Physical Exam Physical Exam: gen - NAD, pleasant, looks much younger than stated age neck - no JVD; full passive ROM of neck without discomfort mouth - MMM heart - RRR, s1 s2, no murmur lungs - CTA b/l abd - soft NT ND BS+ vascular - radial pulses 2+ b/l; foot pulses 2+ b/l ext - no edema neuro - strength 5/5 x 4 exts Results & Data Results & Data ([facility]) Vital Signs (Past 12 Hours) Vital Signs Temp Pulse Pulse Resp BP BP Pulse Ox 04/02/21 19:48 36.5 C 62 18 148/79 H 96 04/02/21 15:24 36.6 C 59 L 18 129/60 95 04/02/21 15:00 65 Laboratory Results Laboratory Results - last 24 hr 04/01/21 04/02/21 04/02/21 22:11 06:35 20:06 Sodium 137 Potassium 4.4 Chloride 108 H Carbon Dioxide 26 Anion Gap 3.0 BUN 23 H Creatinine 0.91 Est Cr Clr Drug Dosing 44.3 Est GFR ( Amer) 67.6 Est GFR (Non-Af Amer) 58.3 BUN/Creatinine Ratio 24.8 H Glucose 98 POC Glucose 127 H Calcium 9.2 Troponin I < 0.015 PG Care Time/CCT Total # of Minutes Spent Total Time Spent with Patient: Total time spent is greater than 50% in coordination of care (as documented) at patient's floor/unit and/or counseling patient: Coding Level of Care Code 64990 Subseq Hosp Care Lvl 3 Diagnoses Diabetes mellitus, type 2 E11.9 Hypothyroidism E03.9 Hypertension I10 DVT prophylaxis Z29.9 Arm pain M79.602 Laterality: left UTI (urinary tract infection) N39.0 Chronic kidney disease, stage 3a N18.31 (1) Arm pain Laterality: left Qualified Code(s): M79.602 - Pain in left arm
--- NOTE | 2021-04-02 23:00 | Ultrasound Report ---
ULTRASOUND OF THE CAROTID ARTERIES CLINICAL HISTORY: L arm pain/numbness; subclavian steal? COMPARISON STUDY: None. TECHNIQUE: Real-time, grayscale, and color Doppler sonography of the carotid arteries was performed. Imaging reviewed in the transverse and longitudinal planes. NASCET criteria was utilized for stenosis calcification. FINDINGS: Mild atherosclerotic involvement of the left upper extremity arteries without evidence of significant stenosis or occlusion. Waveform are mostly biphasic (triphasic waveform is seen within left brachial artery). Normal velocities. Patent vertebral artery with continuous antegrade diastolic flow. Patent left carotid artery without evidence of hemodynamically significant stenosis. IMPRESSION: No evidence of hemodynamically significant stenosis within left upper extremity PA. ACT 112: Negative or not required by law. The above report was generated using voice recognition software. It may contain grammatical, syntax o r spelling errors. Electronically signed by: Alexandrea Meeks DO 04/02/2021 10:58 PM
[2021-04-03 07:33] LABS: Estimated Average Glucose 137 mg/dl; Hemoglobin A1C 6.4 % (4.5-5.6)
[2021-04-03] MEDS: MELOXICAM 7.5 MG TAB PO SCH (08:14)
[2021-04-03] MEDS: FAMOTIDINE 40 MG TABLET PO SCH (08:14)
[2021-04-03] MEDS: cephALEXin 250 MG CAP PO SCH ×2 (08:14→11:45)
[2021-04-03] MEDS: LEVOTHYROXINE SODIUM 75 MCG TABLET PO SCH (08:14)
[2021-04-03] MEDS: lisinopril 20 MG TAB PO SCH (08:15)
--- NOTE | 2021-04-03 09:14 | Magnetic Resonance Report ---
CERVICAL SPINE MRI HISTORY: left arm numbness TECHNIQUE: Multiplanar multisequence MRI of the cervical spine was performed without the use of contr ast. COMPARISON STUDY: None. FINDINGS: Straightening of the mid to lower cervical spine. Alignment is intact. No fractures within the cervical spine. Prevertebral soft tissues and the C1-C2 interval are intact. The visualized poste rior fossa is unremarkable. The cervical spinal cord demonstrates a normal signal intensity. Mild to moderate facet degenerative changes throughout the cervical spine most pronounced at the C3-C4 level. There is moderate disc space narrowing at C5-C6 and C6-C7. C2-C3: No significant central canal or neural foraminal narrowing. C3-C4: Small broad-based posterior disc osteophyte complex with uncovertebral and facet hypertrophy. No central canal narrowing. There is moderate to severe bilateral neural foraminal narrowing. C4-C5: Broad-based posterior disc osteophyte complex which abuts but does not significantly deform th e anterior cord resulting in mild central canal narrowing. There is moderate right neural foraminal n arrowing. C5-C6: Broad-based posterior disc osteophyte complex asymmetric to the left which results in mild lef t anterior cord deformity and mild to moderate central canal narrowing most pronounced along the left . There is also mild right and severe left neural foraminal narrowing. C6-C7: Broad-based posterior disc osteophyte complex which abuts but does not deform the anterior cor d resulting in mild central canal narrowing. There is also mild bilateral neural foraminal narrowing. C7-T1: No significant central canal or neural foraminal narrowing. IMPRESSION: 1. Multilevel cervical spondylosis as described above most pronounced at the C5-C6 level. 2. No fracture or subluxation. 3. Multilevel bilateral neural foraminal narrowing as described above primarily due to the facet and uncovertebral hypertrophy. ACT 112: Negative or not required by law. Electronically signed by: Terry Lopez M.D. 04/03/2021 9:13 AM
--- NOTE | 2021-04-03 11:59 | Discharge Summary ---
Date of Service April 03, 2021 Admission HPI Per Admitting Provider Shweta is an 85-year-old female who presents with chest pain Shweta reports that she was walking on her normal approximately 2 and half mile walk today and was three-quarter as a mile and when she developed a achy pain in her left shoulder radiating into her chest. She has had intermittent shoulder pain in the past which normally improves with walking, this pain was brought on by walking and after a few minutes was associated with shortness of breath and labored breathing. She called her primary care physician who recommended she be seen in the emergency department. She denies a past history of heart problems, but notes her mother required triple bypass at approximately age 50. She reports that she felt a little bit sweaty during the episode. Her pain was 3/10 in intensity, aching quality, and in total seem to last about 20 minutes. She has not had symptoms like this before other than noted above. Denies abdominal pain, diarrhea, constipation, syncope, presyncope, palpitations. She reports she has had some increased urinary frequency. She notes a history of diabetes well controlled without medications under 7% A1c. No tobacco use. Alcohol 1 glass a day approximately 5 days a week. Lives in [facility], no recent sick contacts. Medical History: Reviewed Medications: Reviewed Surgical History: Reviewed Allergies: Reviewed Social History: Reviewed Code Status: Full Discharge Data Allergies Allergy/AdvReac Type Severity Reaction Status Date / Time Penicillins Allergy Unknown Unknown Verified 04/01/21 11:13 doxycycline AdvReac Severe Gastrointestinal Verified 04/01/21 11:13 Upset Sulfa (Sulfonamide AdvReac Mild Nausea Verified 04/01/21 11:13 Antibiotics) Consultations 04/01/21 12:55 ED Decision to Admit Stat 04/02/21 15:12 Consult Cardiology Routine Ordered Studies 04/02/21 18:15 MR cervical spine wo con Routine US arterial duplex UE LT Routine Hospital Course (1) Arm pain: left. mainly numbness/tingling. >90% of episodes occur with walking. symptoms improve with continuing her walk? denies neck pain, denies claudication. s/p stress test today - negative for ischemia, thought to be low risk study. I asked cardiology for formal evaluation just to ensure stress test was not falsely negative. Ischemic felt unlikely. other possible etiologies - subclavian steal ? c-spine DJD with radiculopathy? Obtain MRI c-spine; obtain LUE arterial duplex study. re-eval in am. (2) UTI (urinary tract infection): 2nd GNR - cont keflex. follow cx. (3) Diabetes mellitus, type 2: HbA1c 5.8% in 2019. no A1c since then. check a1c in am. not on meds at home. (4) Hypothyroidism: Check TSH am Continue Synthroid 75 mcg every morning in meantime (5) Hypertension: controlled (6) DVT prophylaxis: lovenox daily (7) Chronic kidney disease, stage 3a: CrCl about 40 at baseline BMPs stable/acceptable Discharge Plan Discharge Items Patient Disposition: Home - Self-Care Reason For Visit: Left arm numbness/discomfort; shortness of breath Discharge Diagnosis: 1. 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 Stress test was NEGATIVE/NORMAL. Blood work for the heart did not show heart attack. Arterial doppler of left arm showed good flow of blood through the left arm - no blocked arteries in the arm. 2. urinary tract infection Activity: As commented below Activity Comment: avoid heavy lifting that would stress the neck; nl activities otherwise Non-emergency contact: Primary Care Provider Call non-emergency contact if: you have any medication questions, your symptoms worsen, your pain is not controlled, your pain is worsening and you have a fever Follow-up/Referrals: Brad Monroe MD [Primary Care Provider] - (see Dr Monroe within 1 week ) Diet: Carb Consistent or DM2 Addtl Attending Provider Instructions: Mrs Bright, You were treated for the problems listed above in "discharge diagnoses." Dr Maikel Bahena from [facility] saw you in consult and felt th at your left arm symptoms were not coming from the heart. Further, your stress test was normal/negative. Your MRI of the neck showed considerable cervical disc disease and arthritis. Some of this disease may be causing nerve impingement ("a pinched nerve") causing the left arm symptoms. The worst area of disease is C5-C6. Please continue your meloxicam as previous as this will help inflammation in the neck. Please start gabapentin to help with the numbness & pain. Start with 100mg at bedtime for 3 days. Then, increase to 100mg twice daily after that. Common side effects - sleepiness, swelling in feet. Dr Monroe can increase the medication further at time of follow-up. You may need to see a specialist if the numbness (and/or pain) continues in the left arm. Ok to continue walks. Just avoid activities and heavy lifting that make the arm and/or neck feel worse. For your urinary tract infection take antibiotics (cephalexin) for 5 more days starting tonight. Return to [facility] if - * your numbness in the arm gets worse * you develop numbness in other locations (the face, left leg, etc) * you have weakness of the left arm or leg * any other concerns It was my pleasure to care for you! Dr Arteaga Pending Studies at Discharge: No Stand-Alone Forms: [facility], Smoking Cessation Medications and DC Order Prescriptions: New gabapentin 100 mg capsule 100 mg PO .daily as directed Qty: 60 RF: 1 cephalexin 500 mg capsule 500 mg PO BID 5 Days Qty: 10 RF: 0 Continued multivitamin Tablet 1 tab PO QAM RF: 0 lisinopril 20 mg tablet 20 mg PO QAM RF: 0 aspirin 81 mg Tablet,Delayed Release (Dr/Ec) 81 mg PO HS RF: 0 acetaminophen [Tylenol Extra Strength] 500 mg Tablet 1,000 mg PO Q6H PRN (Reason: Pain) RF: 0 ascorbic acid (vitamin C) [Vitamin C] 500 mg Tablet 500 mg PO BID RF: 0 psyllium husk [Metamucil] 0.52 gram Capsule 0.52 g PO QAM PRN (Reason: Fiber) RF: 0 cholecalciferol (vitamin D3) [Vitamin D3] 1,000 unit Tablet 1,000 unit PO QAM RF: 0 Probiotic 3 billion cell Capsule 3,000 mmu cells PO HS RF: 0 levothyroxine 75 mcg tablet 75 mcg PO QAM RF: 0 famotidine 20 mg tablet 40 mg PO BID RF: 0 meloxicam 15 mg tablet 15 mg PO QAM RF: 0 calcium carbonate-vitamin D3 [Calcium 600 + D(3)] 600 mg(1,500mg) -200 unit Tablet 1 tab PO DAILY RF: 0 Discharge Orders: Discharge Order (Routine); Ordered 04/03/21 Ordered By: Delfin Lee/Other Patient Handouts: A1C, Managing Type 2 Diabetes, Cervical Disk Problems, Understanding Cervical Radiculopathy Admission Data Admit Date/Time: 04/01/21 14:54 Attending Provider: Delfin Arteaga Admit Provider: Seymour Concepcion Primary Care Provider: Brad Monroe Other Providers: Seymour Concepcion ; Rigo Bahena Coding Diagnoses Arm pain M79.602 Laterality: left UTI (urinary tract infection) N39.0 Diabetes mellitus, type 2 E11.9 Hypothyroidism E03.9 Hypertension I10 DVT prophylaxis Z29.9 Chronic kidney disease, stage 3a N18.31
== END 2021-04-03 13:15 | disposition home or self-care (01) ==
LOC: 2N 10:05 → ED 10:05 → SUATTDRO 14:54 → 2N 15:36

== ENCOUNTER 2023-04-28 15:54 | Inpatient (IN) ==
[2023-04-28 16:44] LABS: Basophils # (auto) 0.01 K/uL (0.00-0.20); Basophils % (auto) 0.1 %; Eosinophils # (auto) 0.03 K/uL (0.00-0.50); Eosinophils % (auto) 0.4 %; Hematocrit (blood only) 43.3 % (37.0-47.0); Hemoglobin 14.3 g/dl (12.0-16.0); Immature Granulocytes # (auto) 0.02 K/uL (0.01-0.20); Immature Granulocytes % (auto) 0.3 %; Lymphocytes # (auto) 1.87 K/uL (1.20-3.40); Lymphocytes % (auto) 27.8 %; Mean Corpuscular Hemoglobin 31.4 pg (25.0-34.0); Mean Corpuscular Volume 95.2 fL (80.0-100.0); Mean Platelet Volume 13.1 fL (9.4-12.4); Monocytes # (auto) 0.66 K/uL (0.11-0.59); Monocytes % (auto) 9.8 %; Neutrophils # (auto) 4.14 K/uL (1.40-6.50); Neutrophils % (auto) 61.6 %; Platelet Count 127 K/uL (130-400); RDW Coefficient of Variation 12.5 % (11.5-14.5); RDW Standard Deviation 43.8 fL (36.4-46.3); Red Blood Count 4.55 M/uL (4.20-5.40); White Blood Count 6.73 K/ul (4.8-10.8)
--- NOTE | 2023-04-28 16:54 | Emergency Department Note ---
Impression & Plan COVID, Hypoxia ED Provider Note NAME: CARLOS NAVARRO AGE: 87 SEX: F : 1935 ARRIVES VIA: Ambulance INFORMANT: Patient, ED PROVIDER(S): Swati Almonte MD CHIEF COMPLAINT: COVID-19 HPI: This is a 87-year-old female with history of GERD, hypertension presenting for COVID-19. Patient states that she times with COVID 2 days ago, Thursday morning. She states that she had a high fever up to 101.9. She has had shaking chills. She states that she came to the hospital because her neighbor suggested he come to "get something done". She states she has no chest pain, shortness of breath. She does note nausea with vomiting. She also notes diarrhea. She has no pleurisy, leg swelling, leg pain. She states she takes medication for blood pressure/thyroid. ROS: See above HPI for pertinent positives & negatives. A total of 10 systems reviewed and were otherwise negative. PAST MEDICAL HISTORY: See Below PAST SURGICAL HISTORY: See Below FAMILY HISTORY: See Below SOCIAL HISTORY: See Below HOME MEDICATIONS: See Below ALLERGIES: See Below VITALS: See Below PHYSICAL EXAMINATION: General: resting comfortably in no acute distress Head: Normocephalic and atraumatic Eyes: Normal inspection, extraocular muscles intact, no conjunctival pallor, Ear, nose, throat: Normal external exam, rhinorrhea Neck: Normal range of motion Respiratory: Patient is in no respiratory distress, lungs clear to auscultation bilaterally Cardiovascular: RRR without murmur appreciated GI: soft, nontender, no guarding or rebound Extremities: pulses intact with good cap refills, no LE pitting edema or calf tenderness Neuro: The patient awake and alert, appropriately conversive,no focal decifits Skin: Warm, dry, and intact MEDICAL DECISION MAKING: This is an 87-year-old female with history of hypertension, GERD and hypot hyroidism presenting for COVID-19. Patient reported to ER for nausea, vomiting, diarrhea and fever with chills. Patient's vital signs do show hypertension, no tachycardia or hypoxia. Patient is clear to auscultation bilaterally. Based on nausea/vomiting and diarrhea, will check for signs of dehydration. Will get chest x-ray to look for signs of superimposed opacities. Otherwise we will do ambulatory pulse ox. Patient's amatory pulse ox reveals hypoxia to 87% with walking. Patient has had numerous episodes of diarrhea while here as well. Patient also was concerned about UTI, will check urinalysis here. Urinalysis reveals no leuk esterase or significant WBC reveal blood and absolute squamous cells. Based on patient's chest x-ray showing right atelectasis at the bases with possible superimposed pneumonia, hypoxia will admit for COVID-19 hypoxia. Triage Nursing notes reviewed. Vital Signs: reviewed and remarkable for borderline hypoxia to 93 resting. Differential diagnosis: COVID-19, hypoxia, lower concern for PE, ACS ER treatment provided: See below Diagnostics interpreted by me: ECG: EKG reviewed by me showing sinus rhythm at a rate of 95, HI 144, QRS and QTc within normal limits, normal axis, no ST segment elevations consistent with STEMI. Laboratory studies: As stated above and show below. Imaging studies: See below. Radiographic imaging was reviewed by myself, CXR reviewed showing possible right atelectasis, no focal opacity. Consultation(s): None Past Med/Surg History Medical History Chronic kidney disease, stage 3a Diabetes mellitus, type 2 Diet controlled Dysphagia Esophageal varices GERD (gastroesophageal reflux disease) Hearing deficit BL LOVE History of colon polyps Hypertension Hypothyroidism Osteoarthritis Right knee DJD UTI (urinary tract infection) Ventricular hypertrophy Surgical History History of ankle surgery Lt History of appendectomy History of carpal tunnel release of both wrists History of cataract surgery History of colonoscopy History of esophagogastroduodenoscopy (EGD) History of hammertoe correction History of partial hysterectomy History of right knee joint replacement History of toe surgery History of tonsillectomy Family History Sister Family history of esophageal cancer Other Heart disease Social History Smoking Status: Never smoker Second Hand Exposure: Yes (hx); Do You Dip or Chew Tobacco: No; Hx Alcohol Use: Yes Alcohol type: wine Hx Substance Use: No Preferred Language: [place] Communication Ability: Effective 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 Beliefs That Will Affect Care: None marital status: / Current Living Situation: Alone Current Living Situation Comment: Senior Apartment Building current occupational status: retired Feels Safe at Home: Yes Assistive Devices: Cane and Walker Allergies Allergies Allergy/AdvReac Type Severity Reaction Status Date / Time Penicillins Allergy Unknown Unknown Verified 04/28/23 21:02 doxycycline AdvReac Severe Gastrointestinal Verified 04/28/23 21:02 Upset Sulfa (Sulfonamide AdvReac Mild Nausea Verified 04/28/23 21:02 Antibiotics) Home Meds Home Medications Medication Instructions Recorded Confirmed acetaminophen 500 mg tablet 1,000 mg PO Q6H PRN Pain 10/28/18 04/28/23 (Tylenol Extra Strength) ascorbic acid (vitamin C) 500 mg 500 mg PO BID 10/28/18 04/28/23 tablet (Vitamin C) aspirin 81 mg tablet,delayed 81 mg PO HS 10/28/18 04/28/23 release cholecalciferol (vitamin D3) 25 1,000 unit PO QAM 10/28/18 04/28/23 mcg (1,000 unit) tablet (Vitamin D3) lactobacillus combination no.4 3 3,000 mmu cells PO HS 10/28/18 04/28/23 billion cell capsule (Probiotic) lisinopril 20 mg tablet 20 mg PO QAM 10/28/18 04/28/23 multivitamin 1 tab PO QAM 10/28/18 04/28/23 psyllium husk 0.52 gram capsule 0.52 g PO QAM PRN Fiber 10/28/18 04/28/23 (Metamucil) famotidine 20 mg tablet 40 mg PO BID 12/17/19 04/28/23 levothyroxine 75 mcg tablet 75 mcg PO QAM 12/17/19 04/28/23 meloxicam 15 mg tablet 15 mg PO QAM 12/20/19 04/28/23 calcium carbonate 600 mg-vitamin 1 tab PO BID 04/01/21 04/28/23 D3 5 mcg (200 unit) tablet (Calcium 600 + D(3)) atorvastatin 80 mg tablet 80 mg PO DAILY 04/28/23 04/28/23 gabapentin 100 mg capsule 100 mg PO BID 04/28/23 04/28/23 Previous Rx's Medication Instructions Recorded promethazine 25 mg tablet 12.5 - 25 mg PO TID PRN cough #10 04/29/23 tabs Results & Data (ED) Vital Signs Vital Signs - 24 hr 04/28/23 16:03 04/28/23 18:09 Temperature 36.9 C Temperature Source Temporal Artery Scan Pulse Rate 96 H Pulse Rate [Exercises] 99 H Respiratory Rate 20 Respiratory Rate [Exercises] 20 Respiratory Effort / Characteristics Non-Labored Spontaneous Respiratory Depth Normal Respiratory Pattern Regular Blood Pressure 187/81 H Blood Pressure Mean 116 Blood Pressure Position Sitting Pulse Oximetry 93 Pulse Oximetry [Exercises] 87 L Oxygen Delivery Method Room Air Room Air Sepsis Recent Fever Within 48 Hours No Sepsis New/Unexplained Change in Mental Status No Sepsis Action Taken by Nursing No Action Required Laboratory Data 04/28/23 16:15 04/28/23 16:15 Lab Results 04/28/23 04/28/23 04/28/23 Range/Units 16:15 16:15 16:15 WBC 6.73 (4.8-10.8) K/ul RBC 4.55 (4.20-5.40) M/uL Hgb 14.3 (12.0-16.0) g/dl Hct 43.3 (37.0-47.0) % MCV 95.2 (80.0-100.0) fL MCH 31.4 (25.0-34.0) pg MCHC 33.0 (32.0-36.0) g/dL RDW Std Deviation 43.8 (36.4-46.3) fL RDW Coeff of Jenna 12.5 (11.5-14.5) % Plt Count 127 L (130-400) K/uL MPV 13.1 H (9.4-12.4) fL Immature Gran % (Auto) 0.3 % Neut % (Auto) 61.6 % Lymph % (Auto) 27.8 % [place] % (Auto) 9.8 % Eos % (Auto) 0.4 % Baso % (Auto) 0.1 % Neut # (Auto) 4.14 (1.40-6.50) K/uL Lymph # (Auto) 1.87 (1.20-3.40) K/uL [place] # (Auto) 0.66 H (0.11-0.59) K/uL Eos # (Auto) 0.03 (0.00-0.50) K/uL Baso # (Auto) 0.01 (0.00-0.20) K/uL Immature Gran # (Auto) 0.02 (0.01-0.20) K/uL Sodium 132 L (136-145) mmol/L Potassium 4.3 (3.5-5.1) mmol/L Chloride 98 (98-107) mmol/L Carbon Dioxide 24 (21-32) mmol/L Anion Gap 10 (3-11) BUN 18 (6-23) mg/dl Creatinine 0.98 (0.6-1.2) mg/dl Est Cr Clr Drug Dosing Not Reportable Est GFR ( Amer) 61.0 ml/min Est GFR (Non-Af Amer) 52.6 ml/min BUN/Creatinine Ratio 18.4 (10-20) Glucose 167 H (70-99(Fasting)) mg/dl Calcium 9.8 (8.6-10.3) mg/dl Phosphorus 2.8 (2.5-4.9) mg/dl Magnesium 1.4 L (1.7-2.4) mg/dl Total Bilirubin 0.5 (0.2-1.0) mg/dl AST 34 (13-39) U/L ALT 39 (7-52) U/L Alkaline Phosphatase 76 (34-104) U/L C-Reactive Protein 5.35 H (0-0.5) mg/dl Total Protein 7.5 (6.0-8.3) gm/dl Albumin 4.5 (3.4-5.0) gm/dl Globulin 3.0 (2.5-4.0) gm/dl Albumin/Globulin Ratio 1.5 (0.9-2) Procalcitonin < 0.05 (0-0.5) ng/ml TSH (0.300-4.500) uIu/ml Urine Color Urine Appearance (Clear) Urine pH (4.5-7.5) Ur Specific [place] (1.000-1.030) Urine Protein (Negative) Urine Glucose (UA) (Negative) Urine Ketones (Negative) Urine Blood (Negative) Urine Nitrite (Negative) Urine Bilirubin (Negative) Urine Urobilinogen (Negative) Ur Leukocyte Esterase (Negative) Urine WBC (Auto) (0-5) /hpf Urine RBC (Auto) (0-4) /hpf U Hyaline Cast (Auto) (0-5) /lpf U Epithel Cells (Auto) (0-5) /lpf Urine Bacteria (Auto) (Negative) 04/28/23 04/28/23 Range/Units 16:15 18:00 WBC (4.8-10.8) K/ul RBC (4.20-5.40) M/uL Hgb (12.0-16.0) g/dl Hct (37.0-47.0) % MCV (80.0-100.0) fL MCH (25.0-34.0) pg MCHC (32.0-36.0) g/dL RDW Std Deviation (36.4-46.3) fL RDW Coeff of Jenna (11.5-14.5) % Plt Count (130-400) K/uL MPV (9.4-12.4) fL Immature Gran % (Auto) % Neut % (Auto) % Lymph % (Auto) % [place] % (Auto) % Eos % (Auto) % Baso % (Auto) % Neut # (Auto) (1.40-6.50) K/uL Lymph # (Auto) (1.20-3.40) K/uL [place] # (Auto) (0.11-0.59) K/uL Eos # (Auto) (0.00-0.50) K/uL Baso # (Auto) (0.00-0.20) K/uL Immature Gran # (Auto) (0.01-0.20) K/uL Sodium (136-145) mmol/L Potassium (3.5-5.1) mmol/L Chloride (98-107) mmol/L Carbon Dioxide (21-32) mmol/L Anion Gap (3-11) BUN (6-23) mg/dl Creatinine (0.6-1.2) mg/dl Est Cr Clr Drug Dosing Est GFR ( Amer) ml/min Est GFR (Non-Af Amer) ml/min BUN/Creatinine Ratio (10-20) Glucose (70-99(Fasting)) mg/dl Calcium (8.6-10.3) mg/dl Phosphorus (2.5-4.9) mg/dl Magnesium (1.7-2.4) mg/dl Total Bilirubin (0.2-1.0) mg/dl AST (13-39) U/L ALT (7-52) U/L Alkaline Phosphatase (34-104) U/L C-Reactive Protein (0-0.5) mg/dl Total Protein (6.0-8.3) gm/dl Albumin (3.4-5.0) gm/dl Globulin (2.5-4.0) gm/dl Albumin/Globulin Ratio (0.9-2) Procalcitonin (0-0.5) ng/ml TSH 2.361 (0.300-4.500) uIu/ml Urine Color Yellow Urine Appearance Clear (Clear) Urine pH 5.5 (4.5-7.5) Ur Specific [place] 1.016 (1.000-1.030) Urine Protein Negative (Negative) Urine Glucose (UA) Negative (Negative) Urine Ketones 2+ H (Negative) Urine Blood 1+ H (Negative) Urine Nitrite Negative (Negative) Urine Bilirubin Negative (Negative) Urine Urobilinogen Negative (Negative) Ur Leukocyte Esterase Negative (Negative) Urine WBC (Auto) 1-5 (0-5) /hpf Urine RBC (Auto) 5-10 H (0-4) /hpf U Hyaline Cast (Auto) 1-5 (0-5) /lpf U Epithel Cells (Auto) >30 H (0-5) /lpf Urine Bacteria (Auto) Negative (Negative) Administered Medications Discontinued Medications Aspirin (Aspirin 81 Mg Ectab) 81 mg PO NOW STA Stop: 04/28/23 23:22 Last Admin: 04/28/23 23:54 Dose: 81 mg Documented By: STELLA Atorvastatin Calcium (Atorvastatin 40 Mg Tab) 80 mg PO DAILY [facility] Stop: 05/29/23 08:59 Last Admin: 04/29/23 08:18 Dose: 80 mg Documented By: ALYSE Benzonatate (Benzonatate 100 Mg Capsule) 100 mg PO NOW ONE Stop: 04/28/23 21:23 Last Admin: 04/28/23 21:34 Dose: 100 mg Documented By: ELROY Dexamethasone (Dexamethasone Sod Inj 4 Mg/Ml Vial) 6 mg IV NOW STA Stop: 04/28/23 19:48 Last Admin: 04/28/23 20:21 Dose: 6 mg Documented By: ALEJANDRA Enoxaparin Sodium (Enoxaparin Inj 40 Mg/0.4 Ml Syr) 40 mg SQ QAM [facility] Stop: 05/29/23 08:59 Last Admin: 04/29/23 08:19 Dose: 40 mg Documented By: ALYSE Famotidine (Famotidine 40 Mg Tablet) 40 mg PO BID [facility] Stop: 05/29/23 08:59 Last Admin: 04/29/23 08:18 Dose: 40 mg Documented By: ALYSE Famotidine (Famotidine 40 Mg Tablet) 40 mg PO NOW ONE Stop: 04/28/23 23:22 Last Admin: 04/28/23 23:54 Dose: 40 mg Documented By: STELLA Gabapentin (Gabapentin 100 Mg Cap) 100 mg PO BID [facility] Stop: 05/29/23 08:59 Last Admin: 04/29/23 08:22 Dose: 100 mg Documented By: ALYSE Gabapentin (Gabapentin 100 Mg Cap) 100 mg PO NOW STA Stop: 04/28/23 23:22 Last Admin: 04/28/23 23:55 Dose: 100 mg Documented By: STELLA Guaifenesin (Guaifenesin Sugar Free 100 Mg/5 Ml Udc) 100 mg PO Q6H PRN PRN Reason: Cough Stop: 05/28/23 20:27 Last Admin: 04/28/23 22:55 Dose: 100 mg Documented By: STELLA Dexamethasone 6 mg/ Syringe 1.5 mls @ 1 mls/min IV Q24H [facility] Stop: 05/29/23 08:59 Last Admin: 04/29/23 08:19 Dose: 1 mls/min Documented By: ALYSE Remdesivir 200 mg/ Sodium (Chloride) 250 mls @ 125 mls/hr IV NOW STA; Protocol Stop: 04/28/23 22:56 Last Infusion: 04/28/23 23:52 Dose: 0 mls/hr Documented By: Admin: 04/28/23 21:35 Dose: 125 mls/hr Documented By: ELROY Magnesium Sulfate/Dextrose (Magnesium Sulfate / D5w) 1 gm in 100 mls @ 50 mls/hr IV Q2H [facility] Stop: 04/29/23 03:29 Last Infusion: 04/29/23 04:14 Dose: 0 mls/hr Documented By: Admin: 04/29/23 02:12 Dose: 50 mls/hr Documented By: Infusion: 04/29/23 01:59 Dose: 50 mls/hr Documented By: Admin: 04/28/23 23:59 Dose: 50 mls/hr Documented By: STELLA Insulin Aspart (Insulin Aspart Per Unit Charge) 0 units SC ACHS [facility] Stop: 05/29/23 07:59 Last Admin: 04/29/23 11:52 Dose: 4 units Documented By: ALYSE Co-signed By: JOHN Admin: 04/29/23 08:14 Dose: 11 units Documented By: ALYSE Co-signed By: RT Insulin Human NPH (Insulin Human Nph) 10 units SC Q24H [facility] Stop: 05/29/23 07:59 Last Admin: 04/29/23 08:15 Dose: 10 units Documented By: ALYSE Co-signed By: RT Levothyroxine Sodium (Levothyroxine Sodium 75 Mcg Tablet) 75 mcg PO DAILYBB [facility] Stop: 05/29/23 06:29 Last Admin: 04/29/23 04:15 Dose: 75 mcg Documented By: STELLA Lisinopril (Lisinopril 20 Mg Tab) 20 mg PO [facility] Stop: 05/29/23 08:59 Last Admin: 04/29/23 08:19 Dose: 20 mg Documented By: ALYSE Meloxicam (Meloxicam 7.5 Mg Tab) 15 mg PO [facility] Stop: 05/29/23 08:59 Last Admin: 04/29/23 08:19 Dose: 15 mg Documented By: ALYSE Menthol (Cough Drop (Sugar Free) Paul 24 Paul/1 Box) Confirm Administered Dose 24 paul [place]CCAL .STK-MED [facility] Stop: 04/28/23 22:54 Last Admin: 04/28/23 22:55 Dose: 24 paul Documented By: STELLA Imaging Data Radiologist's Impression: Chest X-Ray 04/28/23 16:05 SINGLE VIEW CHEST CLINICAL HISTORY: Covid. FINDINGS: A PA chest radiograph is compared to study dated 02/05/2022. The cardiomediastinal silhouette is unremarkable noting atherosclerotic calcification of the thoracic aorta. Chronic interstitial thickening is similar to previous. There are right basilar airspace opacities. No large pleural effusion or pneumothorax is seen. The skeletal structures are osteopenic. The bony thorax is grossly intact. IMPRESSION: Right basilar opacities likely represent atelectasis. Correlate clinically for evidence of a superimposed infectious/inflammatory pneumonitis. ACT 112: Negative or not required by law. Electronically signed by: Steven Monae M.D. 04/28/2023 5:57 PM Discharge Plan Visit Data Chief Complaint: Illness Stated Complaint: COVID+, "FEELING SHAKY" ED Provider: Swati Almonte Discharge Problem: COVID, Hypoxia Patient Disposition: Admitted As Inpatient Discharge Instructions Interventions: ED Discharge Assessment Last Done: 04/28/23 20:28
[2023-04-28 17:17] LABS: Alanine Aminotransferase 39 U/L (7-52); Albumin Globulin Ratio 1.5 (0.9-2); Albumin Level 4.5 gm/dl (3.4-5.0); Alkaline Phosphatase 76 U/L (34-104); Anion Gap 10 (3-11); Aspartate Aminotransferase 34 U/L (13-39); BUN Creatinine Ratio 18.4 (10-20); Bilirubin,Total 0.5 mg/dl (0.2-1.0); Blood Urea Nitrogen 18 mg/dl (6-23); Calcium 9.8 mg/dl (8.6-10.3); Carbon Dioxide 24 mmol/L (21-32); Chloride 98 mmol/L (98-107); Est GFR (Non-African American) 52.6 ml/min; Glucose 167 mg/dl (70-99(Fasting)); Potassium 4.3 mmol/L (3.5-5.1); Sodium 132 mmol/L (136-145); Total Protein 7.5 gm/dl (6.0-8.3)
--- NOTE | 2023-04-28 17:58 | XRay Report ---
SINGLE VIEW CHEST CLINICAL HISTORY: Covid. FINDINGS: A PA chest radiograph is compared to study dated 02/05/2022. The cardiomediastinal silhouett e is unremarkable noting atherosclerotic calcification of the thoracic aorta. Chronic interstitial th ickening is similar to previous. There are right basilar airspace opacities. No large pleural effusio n or pneumothorax is seen. The skeletal structures are osteopenic. The bony thorax is grossly intact. IMPRESSION: Right basilar opacities likely represent atelectasis. Correlate clinically for evidence o f a superimposed infectious/inflammatory pneumonitis. ACT 112: Negative or not required by law. Electronically signed by: Steven Monae M.D. 04/28/2023 5:57 PM
[2023-04-28 18:40] LABS: Appearance Urine Clear (Clear); Bacteria Urine Automated Negative (Negative); Bilirubin Urine Negative (Negative); Blood Urine 1+ (Negative); Color Urine Yellow; Epithelial Cell Urine Auto >30 /lpf (0-5); Glucose Urine UA Negative (Negative); Ketones Urine 2+ (Negative); Leukocyte Esterase Urine Negative (Negative); Nitrite Urine Negative (Negative); Protein Urine Negative (Negative); Specific Gravity Urine 1.016 (1.000-1.030); Urobilinogen Urine Negative (Negative); pH Urine 5.5 (4.5-7.5)
--- NOTE | 2023-04-28 19:26 | History & Physical Report ---
Date of Service April 28, 2023 Assessment & Plan (1) COVID: Plan: 87yo female with history of DM, HTN, CKD-III presenting with Covid-19 infection. Patient developed symptoms of cough and cold on 04/25/23 evening. She took a home test for Covid-19 that was POSITIVE on 04/26/23. She has had evolving symptoms over the last several days with fever today to 101.9. She denies chest pain or shortness of breath. Hypoxic in the ER to 87% on room air with no underlying lung dysfunction. Patient is fully vaccinated and boosted. No prior Covid-19 infection to her knowledge. -Admit to medical -Maintain Covid-19 isolation precautions -Supplemental O2 as needed to maintain saturations 94% -Check BNP, CRP and Procalcitonin -Treat with Dexamethasone 6mg IV daily -Remdesivir daily per protocol -Lovenox 40mg daily for DVT prophylaxis -Tylenol and Robitussin as needed for symptom management (2) Hypertension: Plan: Blood pressure elevated on arrival -Continue Lisinopril 20mg po daily -Monitor (3) GERD (gastroesophageal reflux disease): Plan: Chronic. Stable -Continue Pepcid (4) Hypothyroidism: Plan: Chronic -Continue Synthroid 75mcg po daily -Check TSH (5) Diabetes mellitus, type 2: Plan: Chronic. Diet controlled -CC diet as tolerated -Continue ASA -Continue Gabapentin (6) Chronic kidney disease, stage 3a: Plan: BUN and Cr near baseline -Monitor renal function -Avoid nephrotoxic agents -Mg repletion History of Present Illness Chief Complaint: Covid-19 infection Primary Care Provider: NO PCP Aleksandra Bright is an 87yo female presenting with Covid-19 infection, hypoxic on room air to 87%. Patient with underlying history of CKD, DM, HTN and GERD. She has no underlying lung disease. Does not use supplemental O2. She has been fully vaccinated + boosters and to her knowledge has never had Covid-19 infection. She does report that multiple people in her jail apartment have been sick this week. Patient's symptoms began on the evening of 04/25/23 when she was watching the [employer] game. She developed some cough and congestion as well as fatigue. Over the last several days she has had worsening cough and congestion as well as headache, nausea with non-bloody vomiting and occasional diarrhea. She took a home Covid-19 test on 04/26/23 which was POSITIVE. Today she developed a fever to 101.9 which prompted her to call her PCP. There were no appointments available so she came to the ER. She denies headache at present, no chest pain, palpitations or SOB. No abdominal pain. She does endorse some urinary frequency, urgency and incontinence over the last several days and thinks that she may have a UTI. In the ER she is afebrile, elevated HR to 99bpm, saturating 87% on room air ER Course: Dexamethasone ordered Allergies Allergy/AdvReac Type Severity Reaction Status Date / Time Penicillins Allergy Unknown Unknown Verified 04/28/23 21:02 doxycycline AdvReac Severe Gastrointestinal Verified 04/28/23 21:02 Upset Sulfa (Sulfonamide AdvReac Mild Nausea Verified 04/28/23 21:02 Antibiotics) Home Medications Medication Instructions Recorded Confirmed Type acetaminophen 500 mg tablet 1,000 mg PO Q6H PRN Pain 10/28/18 04/28/23 History (Tylenol Extra Strength) ascorbic acid (vitamin C) 500 mg 500 mg PO BID 10/28/18 04/28/23 History tablet (Vitamin C) aspirin 81 mg tablet,delayed 81 mg PO HS 10/28/18 04/28/23 History release cholecalciferol (vitamin D3) 25 1,000 unit PO QAM 10/28/18 04/28/23 History mcg (1,000 unit) tablet (Vitamin D3) lactobacillus combination no.4 3 3,000 mmu cells PO HS 10/28/18 04/28/23 History billion cell capsule (Probiotic) lisinopril 20 mg tablet 20 mg PO QAM 10/28/18 04/28/23 History multivitamin 1 tab PO QAM 10/28/18 04/28/23 History psyllium husk 0.52 gram capsule 0.52 g PO QAM PRN Fiber 10/28/18 04/28/23 History (Metamucil) famotidine 20 mg tablet 40 mg PO BID 12/17/19 04/28/23 History levothyroxine 75 mcg tablet 75 mcg PO QAM 12/17/19 04/28/23 History meloxicam 15 mg tablet 15 mg PO QAM 12/20/19 04/28/23 History calcium carbonate 600 mg-vitamin 1 tab PO BID 04/01/21 04/28/23 History D3 5 mcg (200 unit) tablet (Calcium 600 + D(3)) atorvastatin 80 mg tablet 80 mg PO DAILY 04/28/23 04/28/23 History gabapentin 100 mg capsule 100 mg PO BID 04/28/23 04/28/23 History Past Med/Surg History Medical History Chronic kidney disease, stage 3a Diabetes mellitus, type 2 Diet controlled Dysphagia Esophageal varices GERD (gastroesophageal reflux disease) Hearing deficit BL LOVE History of colon polyps Hypertension Hypothyroidism Osteoarthritis Right knee DJD UTI (urinary tract infection) Ventricular hypertrophy Surgical History History of ankle surgery Lt History of appendectomy History of carpal tunnel release of both wrists History of cataract surgery History of colonoscopy History of esophagogastroduodenoscopy (EGD) History of hammertoe correction History of partial hysterectomy History of right knee joint replacement History of toe surgery History of tonsillectomy Family History Sister Family history of esophageal cancer Other Heart disease Social History Smoking Status: Never smoker Second Hand Exposure: Yes (hx); Do You Dip or Chew Tobacco: No; Hx Alcohol Use: Yes Alcohol type: wine Hx Substance Use: No Preferred Language: [place]an Communication Ability: Effective Milk Of Lime Slaker Required: No Beliefs That Will Affect Care: None marital status: / Current Living Situation: Alone Current Living Situation Comment: Senior Apartment Building current occupational status: retired Other Information That Helps Us Care for You: No Feels Safe at Home: Yes Safety Concerns: Feels Safe At This Time Assistive Devices: Cane, Glasses and Hearing Aid - Bilateral Review of Systems Review of Systems: All systems reviewed & are unremarkable except as noted in HPI & below Physical Exam Physical Exam: General: patient resting comfortably, NAD, non-toxic in appearance, AA&O x 4 Skin: warm, dry, intact, no rashes or lesions HEENT: NC/AT, PERRL, EOMI, anicteric sclera, conjunctiva without injection, external ear normal to inspection and nontender, nares patent, moist mucus membranes, dentition intact, no oropharyngeal lesions, neck supple, trachea midline, no LAD, no thyromegaly, no JVD Heart: +S1/S2, regular, no m/r/g Lungs: equal air entry bilaterally, normal chest wall motion, faint end- inspiratory crackles in bilateral lung romano, no rhonchi or wheezes Abd: +BS, soft, NT/ND, no masses/organomegaly/ascites Ext: warm, 2+ pulses in UE/LE bilaterally, no clubbing/cyanosis or edema Neuro: nonfocal, patient AA&O x 4, speech intact, no facial droop, moving all extremities on command with equal strength 5/5 Results & Data Results & Data Vital Signs (Past 12 Hours) Vital Signs Temp Pulse Pulse Resp Resp BP Pulse Ox 04/28/23 18:09 99 H 20 04/28/23 16:03 36.9 C 96 H 20 187/81 H 93 Pulse Ox O2 Del Method 04/28/23 18:09 87 L Room Air 04/28/23 16:03 Room Air Laboratory Results Laboratory Results WBC 6.73 K/ul (4.8-10.8) 04/28/23 16:15 RBC 4.55 M/uL (4.20-5.40) 04/28/23 16:15 Hgb 14.3 g/dl (12.0-16.0) 04/28/23 16:15 Hct 43.3 % (37.0-47.0) 04/28/23 16:15 MCV 95.2 fL (80.0-100.0) 04/28/23 16:15 MCH 31.4 pg (25.0-34.0) 04/28/23 16:15 MCHC 33.0 g/dL (32.0-36.0) 04/28/23 16:15 RDW Std Deviation 43.8 fL (36.4-46.3) 04/28/23 16:15 RDW Coeff of Jenna 12.5 % (11.5-14.5) 04/28/23 16:15 Plt Count 127 K/uL (130-400) L 04/28/23 16:15 MPV 13.1 fL (9.4-12.4) H 04/28/23 16:15 Immature Gran % (Auto) 0.3 % 04/28/23 16:15 Neut % (Auto) 61.6 % 04/28/23 16:15 Lymph % (Auto) 27.8 % 04/28/23 16:15 Haines % (Auto) 9.8 % 04/28/23 16:15 Eos % (Auto) 0.4 % 04/28/23 16:15 Baso % (Auto) 0.1 % 04/28/23 16:15 Neut # (Auto) 4.14 K/uL (1.40-6.50) 04/28/23 16:15 Lymph # (Auto) 1.87 K/uL (1.20-3.40) 04/28/23 16:15 Haines # (Auto) 0.66 K/uL (0.11-0.59) H 04/28/23 16:15 Eos # (Auto) 0.03 K/uL (0.00-0.50) 04/28/23 16:15 Baso # (Auto) 0.01 K/uL (0.00-0.20) 04/28/23 16:15 Immature Gran # (Auto) 0.02 K/uL (0.01-0.20) 04/28/23 16:15 Sodium 132 mmol/L (136-145) L 04/28/23 16:15 Potassium 4.3 mmol/L (3.5-5.1) 04/28/23 16:15 Chloride 98 mmol/L (98-107) 04/28/23 16:15 Carbon Dioxide 24 mmol/L (21-32) 04/28/23 16:15 Anion Gap 10 (3-11) 04/28/23 16:15 BUN 18 mg/dl (6-23) 04/28/23 16:15 Creatinine 0.98 mg/dl (0.6-1.2) 04/28/23 16:15 Est Cr Clr Drug Dosing Not Reportable 04/28/23 16:15 Est GFR ( Amer) 61.0 ml/min 04/28/23 16:15 Est GFR (Non-Af Amer) 52.6 ml/min 04/28/23 16:15 BUN/Creatinine Ratio 18.4 (10-20) 04/28/23 16:15 Glucose 167 mg/dl (70-99(Fasting)) H 04/28/23 16:15 Calcium 9.8 mg/dl (8.6-10.3) 04/28/23 16:15 Total Bilirubin 0.5 mg/dl (0.2-1.0) 04/28/23 16:15 AST 34 U/L (13-39) 04/28/23 16:15 ALT 39 U/L (7-52) 04/28/23 16:15 Alkaline Phosphatase 76 U/L (34-104) 04/28/23 16:15 Total Protein 7.5 gm/dl (6.0-8.3) 04/28/23 16:15 Albumin 4.5 gm/dl (3.4-5.0) 04/28/23 16:15 Globulin 3.0 gm/dl (2.5-4.0) 04/28/23 16:15 Albumin/Globulin Ratio 1.5 (0.9-2) 04/28/23 16:15 Urine Color Yellow 04/28/23 18:00 Urine Appearance Clear (Clear) 04/28/23 18:00 Urine pH 5.5 (4.5-7.5) 04/28/23 18:00 Ur Specific [place] 1.016 (1.000-1.030) 04/28/23 18:00 Urine Protein Negative (Negative) 04/28/23 18:00 Urine Glucose (UA) Negative (Negative) 04/28/23 18:00 Urine Ketones 2+ (Negative) H 04/28/23 18:00 Urine Blood 1+ (Negative) H 04/28/23 18:00 Urine Nitrite Negative (Negative) 04/28/23 18:00 Urine Bilirubin Negative (Negative) 04/28/23 18:00 Urine Urobilinogen Negative (Negative) 04/28/23 18:00 Ur Leukocyte Esterase Negative (Negative) 04/28/23 18:00 Urine WBC (Auto) 1-5 /hpf (0-5) 04/28/23 18:00 Urine RBC (Auto) 5-10 /hpf (0-4) H 04/28/23 18:00 U Hyaline Cast (Auto) 1-5 /lpf (0-5) 04/28/23 18:00 U Epithel Cells (Auto) >30 /lpf (0-5) H 04/28/23 18:00 Urine Bacteria (Auto) Negative (Negative) 04/28/23 18:00 Impressions Chest X-Ray 04/28/23 16:05 SINGLE VIEW CHEST CLINICAL HISTORY: Covid. FINDINGS: A PA chest radiograph is compared to study dated 02/05/2022. The cardiomediastinal silhouette is unremarkable noting atherosclerotic calcification of the thoracic aorta. Chronic interstitial thickening is similar to previous. There are right basilar airspace opacities. No large pleural effusion or pneumothorax is seen. The skeletal structures are osteopenic. The bony thorax is grossly intact. IMPRESSION: Right basilar opacities likely represent atelectasis. Correlate clinically for evidence of a superimposed infectious/inflammatory pneumonitis. ACT 112: Negative or not required by law. Electronically signed by: Steven Monae M.D. 04/28/2023 5:57 PM ECG Additional Comments: EKG - per my interpretation - study reveals SR at 95bpm, PAC x 1, KA=685, QRS= 74, MQo=896, no acute ischemic changes Code Status & VTE Plan VTE Prophylaxis Plan VTE Prophylaxis will be ordered: Yes PG Care Time/CCT Total # of Minutes Spent Total Time Spent with Patient: Total time spent is greater than 50% in coordination of care (as documented) at patient's floor/unit and/or counseling patient: Coding Level of Care Code 32482 INT INP/OBS CARE 2/55MIN Diagnoses COVID U07.1 Hypertension I10 GERD (gastroesophageal reflux disease) K21.9 Hypothyroidism E03.9 Diabetes mellitus, type 2 E11.9 Chronic kidney disease, stage 3a N18.31
[2023-04-28] MEDS ORDERED: DEXAMETHASONE SOD INJ 4 MG/ML VIAL IV STA (19:47)
[2023-04-28] MEDS ORDERED: ACETAMINOPHEN 325 MG TAB PO PRN (20:28)
[2023-04-28] MEDS ORDERED: ONDANSETRON INJ 2 MG/ML 2 ML VIAL IV PRN (20:28)
[2023-04-28] MEDS ORDERED: guaiFENesin SUGAR FREE 100 MG/5 ML UDC PO PRN (20:28)
[2023-04-28] MEDS ORDERED: REMDESIVIR 200 MG in SODIUM CHLORIDE 0.9% 210 ML IV STA (20:57)
[2023-04-28] MEDS ORDERED: Patient's HEIGHT &/or WEIGHT Needed SCH (21:00)
[2023-04-28] MEDS ORDERED: BENZONATATE 100 MG CAPSULE PO ONE (21:22)
[2023-04-28 21:45] LABS: C Reactive Protein 5.35 mg/dl (0-0.5); Magnesium 1.4 mg/dl (1.7-2.4); Phosphorus 2.8 mg/dl (2.5-4.9)
[2023-04-28] MEDS ORDERED: COUGH DROP (SUGAR FREE) LOZ 24 LOZ/1 BOX BUCCAL ONE (22:53)
[2023-04-28] MEDS ORDERED: ASPIRIN 81 MG ECTAB PO STA (23:21)
[2023-04-28] MEDS ORDERED: GABAPENTIN 100 MG CAP PO STA (23:21)
[2023-04-28] MEDS ORDERED: FAMOTIDINE 40 MG TABLET PO ONE (23:21)
[2023-04-28] MEDS: MAGNESIUM SULFATE / D5W 1 GM/100 ML BAG IV SCH (23:59)
[2023-04-29] MEDS: MAGNESIUM SULFATE / D5W 1 GM/100 ML BAG IV SCH (02:12)
[2023-04-29] MEDS ORDERED: LEVOTHYROXINE SODIUM 75 MCG TABLET PO SCH (06:30)
[2023-04-29 06:47] LABS: Basophils # (auto) 0.01 K/uL (0.00-0.20); Basophils % (auto) 0.1 %; Hematocrit (blood only) 41.5 % (37.0-47.0); Hemoglobin 13.9 g/dl (12.0-16.0); Immature Granulocytes # (auto) 0.04 K/uL (0.01-0.20); Immature Granulocytes % (auto) 0.4 %; Lymphocytes # (auto) 1.16 K/uL (1.20-3.40); Lymphocytes % (auto) 12.8 %; Mean Corpuscular Hemoglobin 31.8 pg (25.0-34.0); Mean Corpuscular Hgb Conc 33.5 g/dL (32.0-36.0); Mean Platelet Volume 12.5 fL (9.4-12.4); Monocytes # (auto) 0.69 K/uL (0.11-0.59); Monocytes % (auto) 7.6 %; Neutrophils # (auto) 7.16 K/uL (1.40-6.50); Neutrophils % (auto) 79.1 %; Platelet Count 122 K/uL (130-400); RDW Coefficient of Variation 12.4 % (11.5-14.5); RDW Standard Deviation 43.4 fL (36.4-46.3); Red Blood Count 4.37 M/uL (4.20-5.40); White Blood Count 9.06 K/ul (4.8-10.8)
[2023-04-29 07:36] LABS: Albumin Level 4.3 gm/dl (3.4-5.0); BUN Creatinine Ratio 21.4 (10-20); Bilirubin Direct 0.1 mg/dl (0-0.2); Bilirubin,Total 0.5 mg/dl (0.2-1.0); Calcium 9.4 mg/dl (8.6-10.3); Creatinine Clr Calc Pharmacy 46.6 ml/min; Est GFR (African American) 73.5 ml/min; Est GFR (Non-African American) 63.4 ml/min; Potassium 4.5 mmol/L (3.5-5.1); Total Protein 7.2 gm/dl (6.0-8.3)
[2023-04-29] MEDS ORDERED: GLUCOSE 10 TAB/TUBE PO PRN (07:40)
[2023-04-29] MEDS ORDERED: GLUCOSE 40% GEL 15 GM TUBE PO PRN (07:40)
[2023-04-29] MEDS ORDERED: CARBOHYDRATES FOR HYPOGLYCEMIA PO PRN (07:40)
[2023-04-29] MEDS ORDERED: GLUCAGON FOR INJ 1 MG VIAL SQ PRN (07:40)
[2023-04-29] MEDS ORDERED: DEXTROSE 50% 50 ML SYRINGE IV PRN (07:40)
--- NOTE | 2023-04-29 07:50 | Hospitalist Progress Note ---
Date of Service April 29, 2023 Assessment & Plan (1) COVID: Plan: 87yo female with history of DM, HTN, CKD-III presenting with Covid-19 infection. Patient developed symptoms of cough and cold on 04/25/23 evening. She took a home test for Covid-19 that was POSITIVE on 04/26/23. She has had evolving symptoms over the last several days with fever 101.9 on admission . Hypoxic in the ER to 87% on room air with no history underlying lung dysfunction. Patient is fully vaccinated and boosted. -Maintain Covid-19 isolation precautions - CXR is clear -Treat with Dexamethasone 6mg IV daily -Remdesivir daily per protocol -Lovenox 40mg daily for DVT prophylaxis -Tylenol and Robitussin as needed for symptom management (2) Hypertension: Plan: Blood pressure elevated on arrival -Continue Lisinopril 20mg po daily (3) GERD (gastroesophageal reflux disease): Plan: Chronic. Stable -Continue Pepcid (4) Hypothyroidism: Plan: Chronic -Continue Synthroid 75mcg po daily -Check TSH (5) Diabetes mellitus, type 2: Plan: Chronic. Diet controlled seroid elevation will need to start ssi and nph (6) Chronic kidney disease, stage 3a: Plan: BUN and Cr near baseline -Monitor renal function -Avoid nephrotoxic agents -Mg repletion Admission and Anticipated Discharge Date Admission Date: April 28, 2023 Results & Data Results & Data Vital Signs (Past 12 Hours) Vital Signs Temp Pulse Pulse Resp BP Pulse Ox O2 Del Method 04/29/23 07:11 97.3 F L 59 L 16 148/75 H 95 Room Air 04/29/23 00:01 66 18 96 Room Air 04/28/23 22:32 Room Air 04/28/23 22:32 99.1 F 80 18 121/88 94 Room Air 04/28/23 21:41 78 20 121/65 93 Room Air 04/28/23 20:08 85 16 113/65 93 Room Air PG Care Time/CCT Total # of Minutes Spent Total Time Spent with Patient: Total time spent is greater than 50% in coordination of care (as documented) at patient's floor/unit and/or counseling patient: Coding Diagnoses COVID U07.1 Hypertension I10 GERD (gastroesophageal reflux disease) K21.9 Hypothyroidism E03.9 Diabetes mellitus, type 2 E11.9 Chronic kidney disease, stage 3a N18.31
[2023-04-29] MEDS ORDERED: INSULIN HUMAN NPH SC SCH (08:00)
[2023-04-29] MEDS: INSULIN ASPART PER UNIT CHARGE SC SCH ×2 (08:14→11:52)
[2023-04-29] MEDS ORDERED: GABAPENTIN 100 MG CAP PO SCH (09:00)
[2023-04-29] MEDS ORDERED: ENOXAPARIN INJ 40 MG/0.4 ML SYR SQ SCH (09:00)
[2023-04-29] MEDS ORDERED: FAMOTIDINE 40 MG TABLET PO SCH (09:00)
[2023-04-29] MEDS ORDERED: dexAMETHasone 6 MG in SYRINGE 0 ML IV SCH (09:00)
[2023-04-29] MEDS ORDERED: MELOXICAM 7.5 MG TAB PO SCH (09:00)
[2023-04-29] MEDS ORDERED: lisinopril 20 MG TAB PO SCH (09:00)
[2023-04-29] MEDS ORDERED: ATORVASTATIN 40 MG TAB PO SCH (09:00)
--- NOTE | 2023-04-29 15:24 | Discharge Summary ---
Date of Service April 29, 2023 Admission HPI Per Admitting Provider Aleksandra Bright is an 87yo female presenting with Covid-19 infection, hypoxic on room air to 87%. Patient with underlying history of CKD, DM, HTN and GERD. She has no underlying lung disease. Does not use supplemental O2. She has been fully vaccinated + boosters and to her knowledge has never had Covid-19 infection. She does report that multiple people in her care home apartment have been sick this week. Patient's symptoms began on the evening of 04/25/23 when she was watching the [employer] game. She developed some cough and congestion as well as fatigue. Over the last several days she has had worsening cough and congestion as well as headache, nausea with non-bloody vomiting and occasional diarrhea. She took a home Covid-19 test on 04/26/23 which was POSITIVE. Today she developed a fever to 101.9 which prompted her to call her PCP. There were no appointments available so she came to the ER. She denies headache at present, no chest pain, palpitations or SOB. No abdominal pain. She does endorse some urinary frequency, urgency and incontinence over the last several days and thinks that she may have a UTI. In the ER she is afebrile, elevated HR to 99bpm, saturating 87% on room air ER Course: Dexamethasone ordered Principal Diagnosis covid 19 infection Discharge Exam pt has been on room air since admission, she has non productive cough lungs are clear abd is soft and non tender Discharge Data Allergies Allergy/AdvReac Type Severity Reaction Status Date / Time Penicillins Allergy Unknown Unknown Verified 04/28/23 21:02 doxycycline AdvReac Severe Gastrointestinal Verified 04/28/23 21:02 Upset Sulfa (Sulfonamide AdvReac Mild Nausea Verified 04/28/23 21:02 Antibiotics) Consultations 04/28/23 19:27 ED Decision to Admit Stat Hospital Course (1) COVID: 87yo female with history of DM, HTN, CKD-III presenting with Covid-19 infection. Patient developed symptoms of cough and cold on 04/25/23 evening. She took a home test for Covid-19 that was POSITIVE on 04/26/23. She has had evolving symptoms over the last several days with fever 101.9 on admission . Hypoxic in the ER to 87% for one reading has been on room air since Patient is fully vaccinated and boosted. -Maintain Covid-19 isolation precautions, given verbal and written instructions - CXR is clear -offered paxlovid, pt did not want it prescribed -symptom management, good hydration and nutrition (2) Hypertension: Blood pressure elevated on arrival -Continue Lisinopril 20mg po daily (3) GERD (gastroesophageal reflux disease): Chronic. Stable -Continue Pepcid (4) Hypothyroidism: Chronic -Continue Synthroid 75mcg po daily - TSH normal (5) Diabetes mellitus, type 2: Chronic. Diet controlled steroid elevation will not send home on steroids (6) Chronic kidney disease, stage 3a: stable -Mg repletion Total Time Total Time Spent Total Time Spent (In Minutes): It required greater than 30 minutes to prepare this patient for discharge Discharge Plan Discharge Items Patient Disposition: Home - Self-Care Reason For Visit: COVID-19, HYPOXIA Discharge Diagnosis: covid 19 infection diarrhea Activity: Per Instructions section Non-emergency contact: Primary Care Provider Call non-emergency contact if: your symptoms worsen Follow-up/Referrals: PCP,NO [Physician] - Diet: Regular Addtl Attending Provider Instructions: You have been diagnosed with covid infection, it would be recommended that you quarantine yourself for 10 days from your first test or first symptoms, and if at the 10th day you have no symptoms the you can come off quarantine but use common sense precautions. Quarantine means attempting to stay away from people who have not had an active covid infection in the past, and if you have to be around others to wear a mask even if you are indoors, do not share a room to sleep in with others until you are out of quarantine. If you still have symptoms at the 10th day, continue to quarantine until you are symptom free for 48 hours Some the most important things you can do by your COVID infection is to ensure you have good food and drink and do not get dehydrated. Especially if you have some diarrhea be sure to keep up with your liquid oral intake. You should be drinking enough liquids that you have clear to light yellow urine if urine becomes dark you need to drink more liquids Pending Studies at Discharge: No Stand-Alone Forms: [employer], Smoking Cessation Medications and DC Order Prescriptions: New promethazine 25 mg tablet 12.5 - 25 mg PO TID PRN (Reason: cough) Qty: 10 0RF Continued multivitamin Tablet 1 tab PO QAM lisinopril 20 mg tablet 20 mg PO QAM aspirin 81 mg Tablet,Delayed Release (Dr/Ec) 81 mg PO HS acetaminophen [Tylenol Extra Strength] 500 mg Tablet 1,000 mg PO Q6H PRN (Reason: Pain) ascorbic acid (vitamin C) [Vitamin C] 500 mg Tablet 500 mg PO BID psyllium husk [Metamucil] 0.52 gram Capsule 0.52 g PO QAM PRN (Reason: Fiber) cholecalciferol (vitamin D3) [Vitamin D3] 1,000 unit Tablet 1,000 unit PO QAM Probiotic 3 billion cell Capsule 3,000 mmu cells PO HS levothyroxine 75 mcg tablet 75 mcg PO QAM famotidine 20 mg tablet 40 mg PO BID meloxicam 15 mg tablet 15 mg PO QAM calcium carbonate-vitamin D3 [Calcium 600 + D(3)] 600 mg(1,500mg) -200 unit Ta blet 1 tab PO BID atorvastatin 80 mg tablet 80 mg PO DAILY gabapentin 100 mg capsule 100 mg PO BID Rx Instructions: take 1 capsule at bedtime x 3 days; then increase to 1 capsule twice daily thereafter. Discharge Orders: Discharge Order (Routine); Ordered 04/29/23 Ordered By: Ramon Seth Admission Data Admit Date/Time: 04/28/23 19:25 Attending Provider: Ramon Seth Admit Provider: Pat Fischer Primary Care Provider: Merly Shell Other Providers: Pat Fischer Coding Level of Care Code 15285 INP/OBS DISCH >30 MIN Diagnoses COVID U07.1 Hypertension I10 GERD (gastroesophageal reflux disease) K21.9 Hypothyroidism E03.9 Diabetes mellitus, type 2 E11.9 Chronic kidney disease, stage 3a N18.31
--- NOTE | 2023-04-29 16:05 | Electrocardiogram Report ---
Test Reason : Blood Pressure : / mmHG Vent. Rate : 095 BPM Atrial Rate : 095 BPM P-R Int : 144 ms QRS Dur : 074 ms QT Int : 320 ms P-R-T Axes : 054 050 047 degrees QTc Int : 402 ms Sinus rhythm with Premature atrial complexes Otherwise normal ECG When compared with ECG of 04-FEB-2022 23:17, Premature atrial complexes are now Present Confirmed by Maikel Bahena ([id number] on 04/29/2023 4:05:15 PM Referred By: Confirmed By:Willy Bahena
[2023-04-29] MEDS ORDERED: REMDESIVIR 100 MG in SODIUM CHLORIDE 0.9% 230 ML IV SCH (20:00)
[2023-04-29] MEDS ORDERED: ASPIRIN 81 MG ECTAB PO SCH (21:00)
== END 2023-04-29 16:05 | disposition home or self-care (01) | DRG 179 ==
LOC: ED 15:54 → SUATTDRO 19:25 → EDINP 19:25 → 3E 22:26